=== PATIENT | female | born 1995 | race Caucasian/White ===

== ENCOUNTER 2018-04-17 19:40 | Outpatient (CLI) | payer OTHER ==
[2018-04-17 21:46] VITALS: BP 128/87; PULSE 88; RESP 15; TEMP 96.4
--- NOTE | 2018-04-26 12:41 | P.MSEPDOC ---
Presenting Problems - Arrival Data Date of Arrival on Unit: 04/17/18 Time of Arrival on Unit: 19:40 Mode of Transport: Ambulatory - Complaint OB-Reason for Admission/Chief Complaint: Rule Out SROM Comment: Pt states possible SROM at 1800 today Medical History - Information : 1 Para: 0 Term: 0 : 0 Abortions: Spontaneous or Elective: 0 Number of Living Children: 0 - Gestational Age Gestational Age by FILI (wks/days): 38 Weeks and 5 Days Review of Systems - Review of Systems Constitutional: No problems Breast: No problems ENT: No problems Cardiovascular: No problems Respiratory: No problems Gastrointestinal: No problems Genitourinary: No problems Musculoskeletal: No problems Neurological: No problems Skin: No problems Vital Signs - Temperature Temperature: 96.4 F Temperature Source: Temporal Artery Scan - Pulse Pulse Oximetery Pulse Rate: 88 Pulse Assessment Method: Automatic Cuff - Respirations Respiratory Rate: 15 Oxygen Delivery Method: Room Air - Blood Pressure Right Arm Blood Pressure: 128/87 Blood Pressure Mean: 100 Blood Pressure Source: Automatic Cuff Medical Screen Scoring (Pre) - Cervical Exam Dilation: 0 cm = 0 Membranes: Intact - Uterine Contractions Frequency: N/A Duration: N/A Intensity: N/A - Maternal Vital Signs Maternal Temperature: N/A Maternal Blood Pressure: N/A Signs of Preeclampsia: N/A Maternal Respirations: N/A - Pain Assessment Pain Scale Used: Numeric (1 - 10) Pain Intensity: 0 Pain Management Goal: 0 Pain Radiation Location: none Pain Duration: 0 Pain Aggravating Factors: None - Maternal Trauma Maternal Trauma: N/A - Assessment Baseline FHR: 140 Heart Rate - NICHD Category: Category I (Normal) = 0 NST: Reactive Position: N/A Station: N/A - Total Score Total Score (Pre): 0 - Level of Risk Level of Risk: Low (0-5) Physician Notification (Pre) - Physician Notified Physician Notified Date: 04/17/18 Physician Notified Time: 20:25 Physician/Practitioner Notifed:: Dr Cyndie Torres Order Received: Yes Disposition - Disposition OB Disposition: Discharge to home, Written follow up instructions reviewed Discharge Date: 04/17/18 Discharge Time: 20:40 I agree with the RN Medical Screening Exam: Yes Risk & Benefit of care provided described in d/c instruction: Yes Diagnosis: FALSE LABOR AT OR AFTER 37 COMPLETED WEEKS OF GESTATION
== END 2018-04-17 20:42 | disposition home or self-care (01) ==
LOC: FBPOP 19:40
PROVIDERS: ATTEND Obstetrics & Gynecology
DX: O47.1 False labor at or after 37 completed weeks of gestation (principal); Z3A.38 38 weeks gestation of pregnancy
CPT/HCPCS: 59025; 84112; G0463; 99213

== ENCOUNTER 2018-04-25 12:00 | Inpatient (IN) | payer OTHER ==
[2018-04-27] MEDS ORDERED: DINOPROSTONE 10 MG INSERT.ER VAGINAL ONE (17:17)
[2018-04-27 17:25] VITALS: BMI 42.8
[2018-04-27] MEDS ORDERED: BUTORPHANOL 1 MG/ML 1 ML VIAL IV PRN (18:16)
[2018-04-27 20:42] LABS: Basophils % (A) 0 %; Eosinophils # (A) 0.2 k/uL (0-0.7); Eosinophils % (A) 2 %; HCT 38.6 % (34.0-46.0); Lymphocytes # (A) 1.6 k/uL (1.0-4.8); Lymphocytes % (A) 14 %; MCHC 33.7 g/dL (31.0-37.0); Mean Platelet Volume 8.3; Monocytes % (A) 8 %; Neutrophils # (A) 8.3 k/uL (1.3-7.7); Neutrophils % (A) 74 %; Platelet Count 205 k/uL (150-450); RBC 4.33 m/uL (3.80-5.40); RDW 15.1 % (11.5-15.5); WBC 11.2 k/uL (3.8-10.6)
[2018-04-28] MEDS ORDERED: TERBUTALINE 1 MG/ML VIAL SQ PRN (04:18)
[2018-04-28] MEDS ORDERED: METHYLERGONOVINE 0.2 MG/ML 1 ML AMP IM PRN (04:18)
[2018-04-28] MEDS ORDERED: CARBOPROST TROMETHAMINE 250 MCG/ML 1 ML AMP IM PRN (04:18)
[2018-04-28] MEDS ORDERED: OXYTOCIN 10 UNIT/ML 1 ML VIAL IM PRN (04:18)
[2018-04-28] MEDS ORDERED: LIDOCAINE 1% (PF) 10 MG/ML (30 ML SDV) SQ PRN (04:18)
[2018-04-28] MEDS ORDERED: OXYTOCIN 20 UNITS/1000 ML NS 1,000 ML IV SCH ×2 (04:30→17:45)
[2018-04-28] MEDS: LACTATED RINGERS 1,000 ML IV SCH ×4 (05:43→20:32)
--- NOTE | 2018-04-28 08:39 | P.HPOB ---
History of Present Illness H&P Date: 04/28/18 Chief Complaint: 40-2/7 weeks, macrosomia, induction The patient is a 22-year-old 1 para 0 admitted at 40 and one sevenths as established by last menstrual period and 14 week ultrasound. She is admitted with an unfavorable cervix but a fetus growing at larger than the 97th percentile. As result, she has requested induction of labor to which I have agreed. Given her unfavorable cervix, she requires Cervidil cervical ripening first. Her has otherwise been uncomplicated though she was found to have the fetus in breech presentation at 35 weeks which resolved at 36 weeks. The fetus is in vertex presentation at this time. Group B strep status is negative. Obstetrical history: 1 para 0 with current statistics listed in history of present illness. EDC of 04/26/2018 was established by last menstrual period and confirmed by 14 week ultrasound. Laboratory workup demonstrates a blood type of A+ with a negative antibody screen. Rubella status is nonimmune. The remainder of the laboratory work was within normal limits. Early Glucola and second trimester Glucola were entirely normal. Group B strep status is negative. Valve Inserter history: Unremarkable with no history of any infections to include STDs. Review of Systems Review of systems is confined to history of present illness. Past Medical History Past Medical History: No Reported History History of Any Multi-Drug Resistant Organisms: None Reported Past Surgical History: No Surgical Hx Reported Past Anesthesia/Blood Transfusion Reactions: No Reported Reaction Past Psychological History: No Psychological Hx Reported Smoking Status: Former smoker - Past Family History Father Family Medical History: No Reported History Medications and Allergies Home Medications Medication Instructions Recorded Confirmed Type Pnv No.95/Ferrous Fum/Folic AC 1 each PO DAILY 04/17/18 04/27/18 History [ Multivitamin Tablet] Allergies Allergy/AdvReac Type Severity Reaction Status Date / Time No Known Allergies Allergy Verified 04/27/18 18:15 Exam Vital Signs Temp Pulse Resp BP Pulse Ox 04/27/18 17:19 98.2 F 101 H 18 133/61 97 Intake and Output 04/27/18 04/28/18 04/28/18 22:59 06:59 14:59 Intake Total 600 300 Balance 600 300 Intake: Oral 600 300 Other: # Voids 2 1 Weight 131.542 kg In general, this is a morbidly obese white female in no acute distress. Her heart has a regular rhythm and rate without murmur. Her lungs are clear to auscultation bilaterally in all price. Her abdomen is gravid, nondistended, has normal active bowel sounds, is soft, nontender, and without any palpable masses aside from the uterine fundus. Her extremities are without any cyanosis , clubbing, or significant edema and are nontender to palpation bilaterally. Digital cervical examination done traits cervix to be fingertip dilated, approximately 60% effaced, with the vertex in presentation at -3 station. Overnight Cervidil has failed to make any significant improvement in her cervical status. Results Result Diagrams: 04/27/18 17:40 Abnormal Lab Results - Last 24 Hours (Table) 04/27/18 Range/Units 17:40 WBC 11.2 H (3.8-10.6) k/uL Neutrophils # 8.3 H (1.3-7.7) k/uL Assessment and Plan (1) Term Current Visit: Yes Status: Acute Code(s): Z34.80 - ENCOUNTER FOR SUPRVSN OF NORMAL , UNSP TRIMESTER SNOMED Code(s): 92011510 (2) macrosomia Current Visit: Yes Status: Acute Code(s): O36.60X0 - MATERNAL CARE FOR EXCESS GROWTH, UNSP TRIMESTER, UNSP SNOMED Code(s): 90152485 Plan: The patient has been admitted for essentially elective induction secondary to the suspected macrosomia and at the patient's request. Overnight Cervidil has failed to change her cervix tremendously. She has been started on Pitocin and we will continue to have close maternal and surveillance with expectant management. Should it become a possibility, artificial rupture of membranes will be carried out the at that time. She understands that if she fails to follow the labor curve or make any significant cervical change, the likely next step would be to proceed to primary low transverse section for both maternal and safety.
[2018-04-28] MEDS ORDERED: ceFAZolin 3 GM in SODIUM CHLORIDE 0.9% 100 ML IVPB ONE (14:09)
[2018-04-28] MEDS ORDERED: CITRIC ACID-SODIUM CITRATE 15 ML CUP PO ONE (14:09)
[2018-04-28] MEDS ORDERED: NALBUPHINE 10 MG/ML VIAL (10ML MDV) ONE (16:45)
[2018-04-28] MEDS ORDERED: KETOROLAC 30 MG/ML 1 ML VIAL ONE (16:45)
[2018-04-28] MEDS ORDERED: MORPHINE SULFATE (PF) 0.3 MG/0.3 ML SYR ONE (16:45)
[2018-04-28] MEDS ORDERED: OXYTOCIN 10 UNIT/ML 1 ML VIAL ONE (16:45)
[2018-04-28] MEDS ORDERED: PHENYLEPHRINE-0.9% NACL SYG 1 MG/10 ML SYRINGE ONE (16:45)
[2018-04-28] MEDS ORDERED: ONDANSETRON 4 MG/2 ML VIAL ONE (16:45)
[2018-04-28] MEDS ORDERED: ZOLPIDEM 5 MG TAB PO PRN (17:36)
[2018-04-28] MEDS ORDERED: SIMETHICONE 80 MG CHEWABLE PO PRN (17:36)
[2018-04-28] MEDS ORDERED: diphenhydrAMINE 25 MG CAP PO PRN (17:36)
[2018-04-28] MEDS ORDERED: NALOXONE 0.4 MG/ML 1 ML VIAL IV PRN (17:36)
[2018-04-28] MEDS ORDERED: diphenhydrAMINE 50 MG/ML 1 ML VIAL IVP PRN ×2 (17:36)
[2018-04-28] MEDS ORDERED: diphenhydrAMINE 50 MG CAP PO PRN (17:36)
[2018-04-28] MEDS ORDERED: LANOLIN CREAM 5 GM TUBE TOPICAL PRN (17:36)
[2018-04-28] MEDS ORDERED: ONDANSETRON 4 MG/2 ML VIAL IVP PRN (17:36)
[2018-04-28] MEDS ORDERED: ACETAMINOPHEN TAB 325 MG TAB PO PRN (17:36)
[2018-04-28] MEDS ORDERED: METOCLOPRAMIDE 5 MG/ML 2 ML VIAL IVP PRN (17:36)
--- NOTE | 2018-04-28 17:47 | P.OP ---
Date of Procedure: 04/28/18 Preoperative Diagnosis: #1. 40-2/7 weeks, elective induction #2. Suspected macrosomia #3. Arrest of dilation and descent Postoperative Diagnosis: Same plus #4. Nuchal cord 1 Procedure(s) Performed: #1 primary low transverse section Anesthesia: spinal Surgeon: Gilmar Golden Manufacturing Specialist #1: Trinity Cummings Estimated Blood Loss (ml): 400 IV fluids (ml): 600 Urine output (ml): 200 Pathology: none sent Condition: stable Disposition: PACU Operative Findings: Preoperatively, the patient had been admitted for overnight Cervidil cervical ripening procedure an induction today. She had a full day of Pitocin today and never felt any significant pressure or change in her status though she was susu on regular basis. Her cervical exam never changed remaining fingertip, perhaps 50% effaced, with the vertex very high in presentation. Given the anticipated macrosomia, we opted to proceed with primary low- transverse section. She was taken to the operating room where she was delivered of a viable 9 lbs. 6 oz. baby boy with Apgars of 8 at 1 minute and 9 at 5 minutes. The placenta was delivered manually, intact, and grossly normal with a grossly normal three-vessel cord. The uterus, tubes, and ovaries were entirely normal to inspection. Description of Procedure: The patient was prepped and draped in usual fashion after spinal anesthesia was administered by the anesthesiologist. A Pfannenstiel incision was made and extended into the peritoneal cavity without difficulty. The bladder was significantly distal to the site of the intended incision and the bladder peritoneum was left intact. A 2 cm incision was made in the lower uterine segment in a transverse plane at which time clear fluid was noted. The incision was extended in both directions using bandage scissors. The head was encountered within the incision and was delivered up and through the incision where the nose and mouth were thoroughly suctioned. A nuchal cord 1 was noted and was reduced at that time. The remainder of the infant was delivered onto the field where the cord was doubly clamped, cut, and the passed for resuscitative measures with weight and Apgars as noted above. A segment of cord was doubly clamped, cut, and set aside should cord gases become necessary. The placenta was delivered manually and intact as noted above. The uterus was exteriorized and the interior cavity of the uterus swept of any remaining placental or membranous fragments. The margins of the incisions are grasped with Leary clamps and the incision closed in 2 layers. The first layer was a running locking stitch of 0 chromic catgut followed by a running imbricating stitch of 0 chromic catgut, each from margin to margin. Hemostasis appeared excellent. The posterior cul-de-sac was suctioned using a guard and the uterine and ovarian findings were normal as noted above. The uterus was replaced within the abdominal cavity and the gutters swept of any remaining blood, fluid, or clot. The incision was reexamined and found to be hemostatic. The parietal peritoneum was loosely reapproximated and the layer of muscles examined and made hemostatic with the Bovie. Once hemostasis was established, the fascia was closed with 2 running stitches of 0 Vicryl proceeding from the lateral margins to the midpoint. The subcutaneous tissues were irrigated, made hemostatic with the Bovie, and reapproximated with a running stitch of 3-0 plain catgut. The skin was reapproximated with a running subcuticular stitch of 4-0 Vicryl followed by half-inch Steri-Strips placed with Mastisol. Estimated blood loss for the case was approximate 400 mL. There were no complications. All sponge, instrument, and needle counts were correct. The patient tolerated the procedure well and proceeded to the recovery room in stable condition. Both mother and infant are resting comfortably in recovery.
[2018-04-28] MEDS: SENNOSIDES-DOCUSATE SODIUM 1 EACH TAB PO SCH (20:32)
[2018-04-29] MEDS: LACTATED RINGERS 1,000 ML IV SCH (04:23)
--- NOTE | 2018-04-29 06:42 | P.PN ---
Progress Note - Text 04/29 631am 22-year-old female status post by Dr. Golden. Patient had a spinal with Duramorph for postop pain control. Patient seen this morning with a VAS of 0 no complains of nausea vomiting minimal itching.
[2018-04-29 07:31] LABS: Basophils % (A) 0 %; Eosinophils # (A) 0.1 k/uL (0-0.7); Eosinophils % (A) 1 %; HCT 33.9 % (34.0-46.0); HGB 11.3 gm/dL (11.4-16.0); Lymphocytes # (A) 1.3 k/uL (1.0-4.8); Lymphocytes % (A) 11 %; MCH 29.5 pg (25.0-35.0); MCHC 33.4 g/dL (31.0-37.0); MCV 88.4 fL (80.0-100.0); Mean Platelet Volume 7.4; Monocytes % (A) 9 %; Neutrophils # (A) 8.8 k/uL (1.3-7.7); Neutrophils % (A) 77 %; Platelet Count 150 k/uL (150-450); RBC 3.84 m/uL (3.80-5.40); RDW 14.7 % (11.5-15.5); WBC 11.4 k/uL (3.8-10.6)
[2018-04-29] MEDS: KETOROLAC 30 MG/ML 1 ML VIAL IVP PRN ×2 (08:08→16:34)
[2018-04-29] MEDS: SENNOSIDES-DOCUSATE SODIUM 1 EACH TAB PO SCH ×2 (08:08→20:19)
--- NOTE | 2018-04-29 09:40 | P.PNOBGPC ---
Subjective - Subjective Patient reports: Reports appetite normal, Reports voiding normally, Reports pain well controlled, Reports ambulating normally : doing well Objective - Vital Signs Latest vital signs: Vital Signs Temp Pulse Resp BP Pulse Ox 04/29/18 08:00 98.4 F 80 16 110/67 04/29/18 04:00 98.7 F 90 18 115/68 95 04/29/18 00:00 98.0 F 79 16 121/74 96 04/28/18 19:23 98 F 60 15 119/70 98 04/28/18 19:05 56 L 16 119/71 04/28/18 18:35 59 L 17 115/77 99 04/28/18 18:20 69 17 120/77 96 04/28/18 18:05 97.8 F 91 17 113/66 99 04/28/18 17:50 71 16 113/67 96 04/28/18 17:35 97.5 F L 65 17 111/58 96 Intake and Output 04/28/18 04/29/18 04/29/18 22:59 06:59 14:59 Output Total 600 3 Balance -600 -3 Output: Urine 600 3 Uretheral ([place]) 300 Other: # Voids 1 - Exam Extremities: Present: normal Abdomen: Present: normal appearance, soft. Absent: distention, tenderness Incision: Present: normal, dry, intact Uterus: Present: normal, firm (And fundus as tonic and nontender at the umbilicus.) - Labs Labs: Abnormal Lab Results - Last 24 Hours (Table) 04/29/18 Range/Units 07:20 WBC 11.4 H (3.8-10.6) k/uL Hgb 11.3 L (11.4-16.0) gm/dL Hct 33.9 L (34.0-46.0) % Neutrophils # 8.8 H (1.3-7.7) k/uL Assessment and Plan (1) Term Current Visit: Yes Status: Acute Code(s): Z34.80 - ENCOUNTER FOR SUPRVSN OF NORMAL , UNSP TRIMESTER SNOMED Code(s): 20674893 (2) macrosomia Current Visit: Yes Status: Acute Code(s): O36.60X0 - MATERNAL CARE FOR EXCESS GROWTH, UNSP TRIMESTER, UNSP SNOMED Code(s): 63174842 (3) S/P section Current Visit: Yes Status: Acute Code(s): Z98.891 - HISTORY OF UTERINE SCAR FROM PREVIOUS SURGERY SNOMED Code(s): 988802528 Plan: Continue routine care. I would anticipate probable discharge home tomorrow pending location. I have encouraged patient to ambulate in the hallways consistently today.
[2018-04-29] MEDS ORDERED: MEASLES-MUMPS-RUBELLA VACC/PF 12,500 UNIT/0.5 ML VIAL SQ ONE (17:26)
[2018-04-30] MEDS: IBUPROFEN 600 MG TAB PO PRN ×4 (00:19→22:38)
[2018-04-30] MEDS: HYDROcodone/APAP 5-325MG 1 EACH TAB PO PRN ×3 (04:12→19:33)
[2018-04-30] MEDS: SENNOSIDES-DOCUSATE SODIUM 1 EACH TAB PO SCH (08:08)
--- NOTE | 2018-04-30 12:03 | P.PNOBGPC ---
Subjective - Subjective Interval history: Having some difficulty with nursing. Patient reports: Reports appetite normal, Reports voiding normally, Reports pain well controlled, Reports ambulating normally : doing well Objective - Vital Signs Latest vital signs: Vital Signs Temp Pulse Resp BP Pulse Ox 04/30/18 08:00 98.2 F 98 18 108/65 97 04/30/18 00:00 98.4 F 83 16 122/67 98 04/29/18 16:00 98.6 F 89 16 103/60 04/29/18 13:00 98.4 F 77 16 115/69 Intake and Output 04/29/18 04/30/18 04/30/18 22:59 06:59 14:59 Output Total 1600 Balance -1600 Output: Urine 1600 Other: # Voids 1 1 - Exam Extremities: Present: normal Abdomen: Present: normal appearance, soft. Absent: distention, tenderness Incision: Present: normal, dry, intact Uterus: Present: normal, firm (The uterine fundus as tonic inappropriately tender at the umbilicus.) Assessment and Plan (1) Term Current Visit: Yes Status: Acute Code(s): Z34.80 - ENCOUNTER FOR SUPRVSN OF NORMAL , UNSP TRIMESTER SNOMED Code(s): 17722897 (2) macrosomia Current Visit: Yes Status: Acute Code(s): O36.60X0 - MATERNAL CARE FOR EXCESS GROWTH, UNSP TRIMESTER, UNSP SNOMED Code(s): 48322495 (3) S/P section Current Visit: Yes Status: Acute Code(s): Z98.891 - HISTORY OF UTERINE SCAR FROM PREVIOUS SURGERY SNOMED Code(s): 230053315 Plan: Continue routine postoperative and care. The patient is opted to remain in the hospital for an extra day to receive assistance with breast- feeding. I do anticipate discharge home tomorrow pending the complications.
[2018-05-01] MEDS: SENNOSIDES-DOCUSATE SODIUM 1 EACH TAB PO SCH ×2 (00:19→08:00)
[2018-05-01] MEDS: HYDROcodone/APAP 7.5-325MG 1 EACH TAB PO PRN ×2 (02:10→10:41)
[2018-05-01] MEDS: IBUPROFEN 600 MG TAB PO PRN (05:24)
[2018-05-01 10:19] VITALS: BP 116/58; PULSE 71; RESP 18; TEMP 97.9
--- NOTE | 2018-05-01 10:37 | P.DS ---
Providers Date of admission: 04/27/18 17:13 Expected date of discharge: 05/01/18 Attending physician: Gilmar Golden Primary care physician: Stated None - Discharge Diagnosis(es) (1) Term Current Visit: Yes Status: Acute (2) macrosomia Current Visit: Yes Status: Acute (3) S/P section Current Visit: Yes Status: Acute Hospital Course: The patient is a 22-year-old 1 para 0 admitted at 40 and one sevenths weeks by good dating parameters. She is admitted with an unfavorable cervix and a fetus at greater than 97th percentile growth. She requested induction of labor and, given the unfavorable cervix, was admitted for Cervidil cervical ripening to be followed by Pitocin induction. The overnight Cervidil placement failed to make any tremendous difference in her cervix and Pitocin augmentation was started. She made little to no progress throughout the entire day of Pitocin augmentation. As result of previous discussions with the patient given the size of the and discussions on labor and delivery, we agreed to abandon induction and proceed instead to primary low transverse section. She was taken to the operating room where she was delivered of a viable 9 lbs. 6 oz. baby boy with Apgars of 8 at 1 minute and 9 at 5 minutes. Her postoperative course was unremarkable with vital signs remaining stable and her temperature was afebrile throughout. She was deemed stable for discharge on postoperative day #3 was discharged home to follow-up in the office in 2 weeks for an incision check and 6 weeks routinely. Discharge instructions included calling for any significantly increased bleeding or foul-smelling lochia, significantly increased fever abdominal pain, perineal complaints, breast complaints, incisional complaints, or anything else that concerned her. She was additionally instructed to have nothing in the vagina for at least 6 weeks time to include intercourse and to do no heavy lifting over the same period of time. She was lastly instructed to do no driving until off of all pain medications or 2 weeks' time, whichever came first. She understood her instructions and agrees to follow up as noted above. Discharge medications included continued vitamins as she has opted to breast-feed. She also use [id number] analgesic pain medications as needed. She was provided a prescription for Ralph 5/325 mg, 1-2 by mouth every 6 hours when necessary pain , #20 dispensed with no refills. Maternal blood type is A+ and rubella status is nonimmune. She therefore was to receive the MMR vaccination prior to discharge. Hemoglobin and hematocrit at discharge were 11.3 and 33.9 respectively. Procedures: #1. Cervidil cervical ripening #2. Pitocin augmentation #3. Primary low- transverse section Patient Condition at Discharge: Stable Plan - Discharge Summary Discharge Rx Participant: No New Discharge Prescriptions: No Action Pnv No.95/Ferrous Fum/Folic AC [ Multivitamin Tablet] 1 each PO DAILY Discharge Medication List Pnv No.95/Ferrous Fum/Folic AC [ Multivitamin Tablet] 1 each PO DAILY [History] Follow up Appointment(s)/Referral(s): Gilmar Golden MD [STAFF PHYSICIAN] - 2 Weeks Discharge Disposition: HOME SELF-CARE
== END 2018-05-01 11:30 | disposition home or self-care (01) | DRG 765 ==
LOC: 4FBP 04-27 17:13
PROVIDERS: ADMIT Obstetrics & Gynecology; ATTEND Obstetrics & Gynecology
PROC: 3E033VJ Introduction of Other Hormone into Peripheral Vein, Percutaneous Approach (ICD-10-PCS; principal; 2018-04-27)
PROC: 3E0P7VZ Introduction of Hormone into Female Reproductive, Via Natural or Artificial Opening (ICD-10-PCS; principal; 2018-04-27)
PROC: 10907ZC Drainage of Amniotic Fluid, Therapeutic from Products of Conception, Via Natural or Artificial Opening (ICD-10-PCS; principal; 2018-04-27)
PROC: 10D00Z1 Extraction of Products of Conception, Low, Open Approach (ICD-10-PCS; 2018-04-28)
DX: O36.63X0 Maternal care for excessive fetal growth, third trimester, not applicable or unspecified (principal); Z68.41 Body mass index [BMI] 40.0-44.9, adult; Z37.0 Single live birth; O48.0 Post-term pregnancy; Z3A.40 40 weeks gestation of pregnancy; Z87.891 Personal history of nicotine dependence; O69.81X0 Labor and delivery complicated by cord around neck, without compression, not applicable or unspecified; O99.214 Obesity complicating childbirth; E66.01 Morbid (severe) obesity due to excess calories; O62.0 Primary inadequate contractions; O32.4XX0 Maternal care for high head at term, not applicable or unspecified
CPT/HCPCS: 85025; 86850; 86900; 86901; 90707

== ENCOUNTER → 2019-10-12 | Outpatient (CLI) | payer OTHER ==
--- NOTE | 2019-10-12 09:10 | US ---
EXAMINATION TYPE: US gallbladder DATE OF EXAM: 10/12/2019 COMPARISON: NONE CLINICAL HISTORY: R10.11 Abdominal pain, right upper quadrant. RUQ pain. NPO. No previous surgeries . EXAM MEASUREMENTS: Liver Length: 18.4 cm Gallbladder Wall: 0.2 cm CBD: 0.3 cm Right Kidney: 10.4 x 5.8 x 4.4 cm Pancreas: Head and tail obscured by overlying bowel gas. Liver: Upper limits of normal in size Gallbladder: wnl Evidence for sonographic Covarrubias's sign: neg CBD: wnl Right Kidney: No hydronephrosis or masses seen IMPRESSION: Liver is upper limits of normal in size. No sonographic evidence of cholelithiasis or acu te cholecystitis. Partial obscuration of the pancreas.
== END | disposition home or self-care (01) ==
LOC: RADUSWWP 07:08
PROVIDERS: ATTEND Family Medicine
DX: R10.11 Right upper quadrant pain (principal)
CPT/HCPCS: 76705

== ENCOUNTER → 2019-10-31 | Outpatient (CLI) | payer OTHER ==
--- NOTE | 2019-10-31 15:52 | NM ---
EXAMINATION TYPE: NM hepatobiliary w EF DATE OF EXAM: 10/31/2019 COMPARISON: Ultrasound gallbladder 10/12/2019 HISTORY: Abdominal pain right upper quadrant TECHNIQUE: After the intravenous administration of 4.55 mCi Tc 99m Mebrofenin hepatobiliary scintigra phy is performed. Immediate images post injection. FINDINGS: There is satisfactory initial accumulation of tracer by the liver. The gallbladder is visualized wit hin 6 minutes. The small bowel activity is noted within 10 minutes. At one hour 8 ounces of oral en sure plus is given to mimic CCK and gallbladder ejection fraction is calculated at 63 %, in the shena l range. Therefore there is no scintigraphic evidence of cystic or common bile duct obstruction to s uggest acute cholecystitis or gallbladder dyskinesia. IMPRESSION: Exam is within normal limits.
== END | disposition home or self-care (01) ==
LOC: RADNMMAIN 12:52
PROVIDERS: ATTEND Family Medicine
DX: R10.11 Right upper quadrant pain (principal)
CPT/HCPCS: 78226; A9537

== ENCOUNTER → 2019-11-29 | Outpatient (CLI) | payer OTHER ==
--- NOTE | 2019-11-29 15:00 | USB ---
Reason for exam: clinical finding. Indicated problem(s): lump or thickening in the left breast. Physical Findings: Nurse did not find any significant physical abnormalities on exam. US Breast Limited LT Left limited breast ultrasound including focal area of concern, retroareolar and axilla demonstrates a 3.6 x 2.9 x 1.4cm oval lesion at the axilla, lipoma versus enlarged lymph node. 3 months follow up ultrasound recommended. These results were verbally communicated with the patient and result sheet given to the patient on 11/29/19. ASSESSMENT: Probably benign, BI-RAD 3 RECOMMENDATION: Ultrasound of the left breast in 3 months. (axilla)
== END | disposition home or self-care (01) ==
LOC: RADMAMWWP 13:08
PROVIDERS: ATTEND Family Medicine
DX: N63.25 Unspecified lump in the left breast, overlapping quadrants (principal); N64.4 Mastodynia

== ENCOUNTER → 2020-03-04 | Outpatient (CLI) | payer OTHER ==
--- NOTE | 2020-03-05 09:07 | USB ---
Reason for exam: clinical finding. Physical Findings: Nurse Summary: all soft, nodular, movable (nurse ts). US Breast LT Technologist: Viky Painter Left complete breast ultrasound includes all four quadrants, the retroareolar region and axilla. Finding demonstrates a 3.8 x 3.0 x 1.3cm oval, vascular lesion at the axilla, appears as an enlarged lymph node on today's exam with cortical thickening. These results were verbally communicated with the patient and result sheet given to the patient on 03/04/20. ASSESSMENT: Suspicious, BI-RAD 4 RECOMMENDATION: Ultrasound core biopsy of the left breast. Called Dr. Chinchilla's office with mammographic findings. Office will call patient with appointment date and time of axilla biopsy. PRELIMINARY REPORT CALLED AND FAXED TO DR. CHINCHILLA ON 03/05/20.
== END | disposition home or self-care (01) ==
LOC: RADUSWWP 14:49
PROVIDERS: ATTEND Family Medicine
DX: R92.8 Other abnormal and inconclusive findings on diagnostic imaging of breast (principal)

== ENCOUNTER 2020-03-13 13:02 | Day surgery (SDC) | payer OTHER ==
[2020-03-13 14:02] VITALS: TEMP 99
[2020-03-13 15:19] VITALS: BP 124/76; PULSE 81; RESP 16
--- NOTE | 2020-03-13 15:39 | US ---
EXAMINATION TYPE: US biopsy lymph node DATE OF EXAM: 03/13/2020 HISTORY: Left axillary mass. FINDINGS: Maximal barrier technique was utilized. Hand hygiene achieved with soap and water. The ski n overlying a suitable path to the patient's mass in the left axilla which is isoechoic to fat was lo calized with ultrasound and the overlying skin prepped and draped. Ultrasound was utilized with ster ile technique. Lidocaine was used for local anesthesia. A skin ricky was made with a scalpel. An 18 -gauge needle was advanced under direct ultrasound guidance and core specimen obtained of the mass. 2 passes were made. Specimen submitted in formalin to Pathology. Following the procedure, hemostasis achieved and the patient is discharged in stable condition without complication. IMPRESSION:STATUS POST ULTRASOUND GUIDED CORE BIOPSY OF left axillary MASS, isoechoic to fat, PATHOLO GY IS PENDING. THIS PROCEDURE IS PERFORMED BY THE UNDERSIGNED.
== END 2020-03-13 14:45 | disposition home or self-care (01) ==
LOC: RADPROMAIN 13:02
PROVIDERS: ATTEND Nurse Practitioner Women's Health
DX: R22.32 Localized swelling, mass and lump, left upper limb (principal)
CPT/HCPCS: 38505; 76942; 88305

== ENCOUNTER → 2020-04-18 | Outpatient (CLI) | payer OTHER ==
--- NOTE | 2020-04-18 12:02 | US ---
EXAMINATION TYPE: Transabdominal DATE OF EXAM: 04/18/2020 11:48 AM COMPARISON: NONE CLINICAL HISTORY: O76 Abnormality in heart rate and rhythm com. No heart tones EXAM PERFORMED: Transabdominal (TA) EXAM MEASUREMENTS: GESTATIONAL AGE / DATING Physician Established: (11 weeks/3 days) EDC: 11/04/2020 Dates by LMP: (11 weeks/3 days) EDC: 11/04/2020 Dates by First Scan: No previous this is first scan Dates by Current Scan for: (11 weeks/3 days) EDC: 11/04/2020 MATERNAL ANATOMY Uterus: 13 x 6.5 x 9.9 cm Right Ovary: Obscured by bowel gas Left Ovary: Obscured by bowel gas Post CDS / Adnexa: wnl Presence of free fluid: no Presence of corpus luteal cyst: no Presence of subchorionic bleed: no GESTATION / SURVEY CRL: 4.59 cm (11 weeks/3 days) Heart Rate: 170 bpm Rhythm: Normal IUP: Viable IUP Beta HcG (if available): Not available at this time Single live intrauterine gestation is seen a gestational sac and pole are seen. Yolk sac not id entified. No free fluid. Neither ovary seen. No suspicious adnexal masses IMPRESSION: Single live Intrauterine gestation, mean crown-rump length is 4.6 cm corresponding to 11 week 3 day old fetus.
== END | disposition home or self-care (01) ==
LOC: RADUSWWP 11:31
PROVIDERS: ATTEND Obstetrics & Gynecology
DX: O76 Abnormality in fetal heart rate and rhythm complicating labor and delivery (principal); Z3A.11 11 weeks gestation of pregnancy
CPT/HCPCS: 76801

== ENCOUNTER 2020-10-28 05:53 | Inpatient (IN) | payer OTHER ==
[2020-10-25 16:13] VITALS: BMI 42.8
[2020-10-28] MEDS ORDERED: CITRIC ACID-SODIUM CITRATE 15 ML CUP PO ONE (06:04)
[2020-10-28] MEDS ORDERED: ceFAZolin 3 GM in SODIUM CHLORIDE 0.9% 100 ML IVPB ONE (06:04)
[2020-10-28] MEDS ORDERED: LACTATED RINGERS 1,000 ML IV ONE (06:04)
[2020-10-28] MEDS ORDERED: LACTATED RINGERS 1,000 ML IV SCH (06:15)
[2020-10-28 07:22] LABS: Basophils # (A) 0.1 k/uL (0-0.2); Basophils % (A) 1 %; Eosinophils # (A) 0.1 k/uL (0-0.7); Eosinophils % (A) 1 %; HCT 41.8 % (34.0-46.0); HGB 14.2 gm/dL (11.4-16.0); Lymphocytes # (A) 2.1 k/uL (1.0-4.8); Lymphocytes % (A) 16 %; MCH 30.5 pg (25.0-35.0); MCV 89.6 fL (80.0-100.0); Mean Platelet Volume 7.7; Monocytes % (A) 7 %; Neutrophils % (A) 74 %; Platelet Count 218 k/uL (150-450); RBC 4.66 m/uL (3.80-5.40); RDW 14.5 % (11.5-15.5); WBC 13.6 k/uL (3.8-10.6)
[2020-10-28] MEDS ORDERED: MORPHINE SULFATE (PF) 0.3 MG/0.3 ML SYR ONE (07:58)
[2020-10-28] MEDS ORDERED: PHENYLEPHRINE 10 MG/ML VIAL ONE (07:58)
[2020-10-28] MEDS ORDERED: KETOROLAC 15 MG/ML 1 ML VIAL ONE (07:58)
[2020-10-28] MEDS ORDERED: OXYTOCIN 10 UNIT/ML 1 ML VIAL ONE (07:58)
[2020-10-28] MEDS ORDERED: diphenhydrAMINE 50 MG/ML 1 ML VIAL IVP PRN ×3 (09:02→09:25)
[2020-10-28] MEDS ORDERED: ONDANSETRON 4 MG/2 ML VIAL IVP PRN ×2 (09:02→09:25)
[2020-10-28] MEDS ORDERED: MORPHINE SULFATE 2 MG/ML SYRINGE IVP PRN (09:02)
[2020-10-28] MEDS ORDERED: NALOXONE 0.4 MG/ML 1 ML VIAL IV PRN ×2 (09:02→09:25)
[2020-10-28] MEDS ORDERED: METOCLOPRAMIDE 5 MG/ML 2 ML VIAL IVP PRN (09:25)
[2020-10-28] MEDS ORDERED: SIMETHICONE 80 MG CHEWABLE PO PRN (09:25)
[2020-10-28] MEDS ORDERED: ZOLPIDEM 5 MG TAB PO PRN (09:25)
[2020-10-28] MEDS ORDERED: diphenhydrAMINE 50 MG CAP PO PRN (09:25)
[2020-10-28] MEDS ORDERED: HYDROcodone/APAP 7.5-325MG 1 EACH TAB PO PRN (09:25)
[2020-10-28] MEDS ORDERED: ACETAMINOPHEN TAB 325 MG TAB PO PRN (09:25)
[2020-10-28] MEDS ORDERED: diphenhydrAMINE 25 MG CAP PO PRN (09:25)
[2020-10-28] MEDS ORDERED: LANOLIN CREAM 5 GM TUBE TOPICAL PRN (09:25)
[2020-10-28] MEDS ORDERED: OXYTOCIN 30 UNITS/500 ML NS 30 UNIT in SALINE 1 500ML.BAG IV SCH (09:30)
--- NOTE | 2020-10-28 09:30 | P.HPOB ---
History of Present Illness H&P Date: 10/28/20 Chief Complaint: 39-0/7 weeks, previous section, requesting repeat The patient is a 25-year-old 2 para 1001 admitted at 39-0/7 weeks as established by 8 week ultrasound. She is admitted for repeat low transverse section having undergone a previous section and requesting repeat, declining vaginal trial of labor. Her has been entirely uncomplicated and group B strep status is negative. Obstetrical history: 2 para 1001 with 1 term section as noted above for arrest of dilation and descent. Current statistics are listed in history present illness. EDC of 11/04/2020 was established by an 8 week ultrasound. Laboratory workup demonstrates a blood type of A+ with a negative antibody screen. Rubella status is immune. The remainder of the laboratory workup was within normal limits. Early Glucola was normal as was second trimester Glucola. Group B strep status is negative. Gynecologic history: Unremarkable with no history of any infections to include STDs. Review of Systems Review of systems is confined to history of present illness. Past Medical History Past Medical History: GERD/Reflux, Hypertension Additional Past Medical History / Comment(s): Hypertension as child, heart murmur as a child, gallstones, hx belly button infection. Current lump in left breast, having Mammogram . 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 Past Anesthesia/Blood Transfusion Reactions: No Reported Reaction Past Psychological History: Anxiety Additional Psychological History / Comment(s): Anxiety as a child, none now. Smoking Status: Former smoker Past Alcohol Use History: None Reported Additional Past Alcohol Use History / Comment(s): Smoked on and off quit 1 yr ago. Past Drug Use History: None Reported - Past Family History Father Family Medical History: No Reported History Medications and Allergies Home Medications Medication Instructions Recorded Confirmed Type Pnv No.95/Ferrous Fum/Folic AC 1 each PO DAILY 04/17/18 10/28/20 History [ Multivitamin Tablet] Omeprazole 20 mg PO DAILY 10/25/20 10/28/20 History Allergies Allergy/AdvReac Type Severity Reaction Status Date / Time No Known Allergies Allergy Verified 10/28/20 06:03 Exam Vital Signs Temp Pulse Resp BP Pulse Ox 10/28/20 09:15 80 16 110/57 95 10/28/20 09:02 16 96 10/28/20 09:00 96.6 F L 81 16 106/55 96 10/28/20 06:03 97.6 F 114 H 16 142/76 97 Intake and Output 10/27/20 10/28/20 10/28/20 22:59 06:59 14:59 Output Total 50 Balance -50 Output: Urine 50 Other: Voiding Method Indwelling Catheter Weight 131.542 kg In general, this is a well-developed, moderately obese white female in no acute distress. Her heart has a regular rhythm and rate without murmur. Her lungs are clear to auscultation in all price. Her abdomen is gravid, nondistended, has normal active bowel sounds, soft, nontender, and without any palpable masses aside from the uterine fundus. Her extremities are without any cyanosis, clubbing, or significant edema and are nontender to palpation bilaterally. Digital cervical examination is deferred. Results Result Diagrams: 10/28/20 07:06 Abnormal Lab Results - Last 24 Hours (Table) 10/28/20 Range/Units 07:06 WBC 13.6 H (3.8-10.6) k/uL Neutrophils # 10.0 H (1.3-7.7) k/uL Assessment and Plan (1) Previous section Current Visit: Yes Status: Acute Code(s): Z98.891 - HISTORY OF UTERINE SCAR FROM PREVIOUS SURGERY SNOMED Code(s): 295909834 (2) Term Current Visit: Yes Status: Acute Code(s): Z34.80 - ENCOUNTER FOR SUPRVSN OF NORMAL , UNSP TRIMESTER SNOMED Code(s): 32688353 Plan: The patient is admitted for repeat low transverse section. The risks and, occasions the procedure been thoroughly discussed and she has understood and agreed to proceed.
--- NOTE | 2020-10-28 09:36 | P.OP ---
Date of Procedure: 10/28/20 Preoperative Diagnosis: #1. 39-0/7 weeks, previous section, requesting repeat Postoperative Diagnosis: Same Procedure(s) Performed: #1. Repeat low transverse section Anesthesia: spinal Surgeon: Gilmar Golden Time Analysis Clerk #1: Mariajose Agee Estimated Blood Loss (ml): 470 IV fluids (ml): 500 Urine output (ml): 50 Pathology: none sent Condition: stable Disposition: floor Operative Findings: The patient was taken the operating room where she was delivered of a viable 7 lbs. 14 oz. baby boy with Apgars of 8 at 1 minute and 9 at 5 minutes delivered in the right occiput posterior position. The placenta was delivered manually and intact. The uterus, tubes, and ovaries were entirely normal to inspection. There was a moderate to significant amount of scarring at the level of the fascia and rectus muscles. Description of Procedure: The patient was prepped and draped in usual fashion after spinal anesthesia was administered by the anesthesiologist. A Pfannenstiel incision was made through pre-existing scar and extended into the abdominal cavity with some difficulty encountered at the level of the fascia and muscles secondary to scarring. Once the abdomen had been entered, bladder peritoneum was noted to be scarred relatively high and was therefore elevated, incised, and reflected distally. A 2 cm incision was made in the transverse plane of the lower uterine segment to enter the uterus at which time clear fluid was noted. The incision was extended in both directions using the bandage scissors. The head was delivered up and through the incision where the nose and mouth were thoroughly suctioned. Remainder of the was delivered onto the field where the cord was doubly clamped, cut, and the infant passed resuscitative measures with weight and Apgars as noted above. A segment of cord was doubly clamped, cut, and set aside should cord gases become necessary. The placenta was delivered manually and intact as noted above. The uterus was exteriorized and the interior cavity of the uterus swept of any remaining placental or membranous fragments. The margins of the uterine incision were grasped with Leary clamps and the incision closed in 2 layers. The first layer was a running locking stitch of 0 chromic catgut followed by a running imbricating layer of 0 chromic, each from margin to margin. A point of bleeding at the left angle was made hemostatic with approximately 2-3 wxprmg-fp-jeujo stitches of 0 chromic catgut. Any small points of bleeding were made hemostatic with the Bovie. The posterior cul-de-sac was suctioned with a guard as well as a laparotomy sponge. The uterus was replaced within the abdominal cavity and the gutters swept of any remaining blood, fluid, or clot. Examination of the uterine incision demonstrated excellent hemostasis after placement of the last [id number] stitch the left angle. The parietal peritoneum was loosely reapproximated and layer of muscles examined and made hemostatic with the Bovie. The fascia was closed with 2 running stitches of 0 Vicryl proceeding from lateral margins to the midpoint. The subcutaneous tissues were irrigated, made hemostatic with the Bovie, and reapproximated with a running stitch of 30 plain catgut. The skin was reapproximated with a running subcuticular stitch of 4-0 Vicryl from margin to margin followed by half-inch Steri-Strips placed with Mastisol. Estimated blood loss for the entire case was approximate 470 mL. There were no complications. All sponge, instrument, needle counts were correct. The patient tolerated the procedure well and proceeded to the recovery room in stable condition. Both mother and are resting comfortably in recovery.
[2020-10-28] MEDS: LACTATED RINGERS 1,000 ML IV SCH ×3 (14:48→23:52)
[2020-10-28] MEDS: KETOROLAC 15 MG/ML 1 ML VIAL IVP PRN ×2 (16:02→22:03)
[2020-10-28] MEDS: SENNOSIDES-DOCUSATE SODIUM 1 EACH TAB PO SCH (19:50)
[2020-10-29] MEDS: KETOROLAC 15 MG/ML 1 ML VIAL IVP PRN (05:50)
[2020-10-29 06:05] LABS: Basophils # (A) 0.1 k/uL (0-0.2); Basophils % (A) 0 %; Eosinophils # (A) 0.2 k/uL (0-0.7); Eosinophils % (A) 2 %; HCT 36.2 % (34.0-46.0); HGB 12.4 gm/dL (11.4-16.0); Lymphocytes # (A) 1.9 k/uL (1.0-4.8); Lymphocytes % (A) 14 %; MCH 31.5 pg (25.0-35.0); MCHC 34.2 g/dL (31.0-37.0); MCV 91.9 fL (80.0-100.0); Mean Platelet Volume 9.3; Monocytes # (A) 1.2 k/uL (0-1.0); Monocytes % (A) 9 %; Neutrophils # (A) 10.2 k/uL (1.3-7.7); Neutrophils % (A) 74 %; Platelet Count 147 k/uL (150-450); RBC 3.94 m/uL (3.80-5.40); RDW 14.3 % (11.5-15.5); WBC 13.7 k/uL (3.8-10.6)
[2020-10-29] MEDS: SENNOSIDES-DOCUSATE SODIUM 1 EACH TAB PO SCH ×2 (08:03→19:45)
--- NOTE | 2020-10-29 08:34 | P.PNOBGPC ---
Subjective - Subjective Patient reports: Reports appetite normal, Reports voiding normally, Reports pain well controlled, Reports ambulating normally : doing well Objective - Vital Signs Latest vital signs: Vital Signs Temp Pulse Resp BP Pulse Ox 10/29/20 03:45 97.9 F 66 18 135/64 97 10/29/20 02:00 18 97 10/29/20 00:00 97.9 F 66 18 110/91 97 10/28/20 22:00 16 99 10/28/20 20:00 97.8 F 71 18 127/79 95 10/28/20 18:08 16 96 10/28/20 16:00 98.6 F 78 16 123/82 94 L 10/28/20 14:02 96 10/28/20 14:00 16 96 10/28/20 12:26 16 10/28/20 11:00 97.7 F 79 16 97/52 96 10/28/20 10:30 85 16 109/62 98 10/28/20 10:02 16 95 10/28/20 10:00 80 16 111/60 95 10/28/20 09:45 97.6 F 71 16 106/61 95 10/28/20 09:30 78 16 97/52 95 10/28/20 09:15 80 16 110/57 95 10/28/20 09:02 16 96 10/28/20 09:00 96.6 F L 81 16 106/55 96 Intake and Output 10/28/20 10/29/20 10/29/20 22:59 06:59 14:59 Intake Total 100 Output Total 700 1000 Balance -600 -1000 Intake: Oral 100 Output: Urine 700 1000 Uretheral ([place]) 700 Other: Voiding Method Indwelling Catheter Indwelling Catheter # Voids 1 1 - Exam Extremities: Present: normal Abdomen: Present: normal appearance, soft. Absent: distention, tenderness Incision: Present: normal, dry, intact Uterus: Present: normal, firm (The uterine fundus as tonic and appropriate tender below the umbilicus.) - Labs Labs: Abnormal Lab Results - Last 24 Hours (Table) 10/29/20 Range/Units 05:47 WBC 13.7 H (3.8-10.6) k/uL Plt Count 147 L (150-450) k/uL Neutrophils # 10.2 H (1.3-7.7) k/uL Monocytes # 1.2 H (0-1.0) k/uL Assessment and Plan (1) Previous section Current Visit: Yes Status: Acute Code(s): Z98.891 - HISTORY OF UTERINE SCAR FROM PREVIOUS SURGERY SNOMED Code(s): 990542119 (2) Term Current Visit: Yes Status: Acute Code(s): Z34.80 - ENCOUNTER FOR SUPRVSN OF NORMAL , UNSP TRIMESTER SNOMED Code(s): 93001251 (3) S/P section Current Visit: Yes Status: Acute Code(s): Z98.891 - HISTORY OF UTERINE SCAR FROM PREVIOUS SURGERY SNOMED Code(s): 505777917 Plan: Continue routine postoperative care. I have encouraged the patient ambulated always routinely today and would anticipate discharge home tomorrow. The has been found with some issues that will require him to be examined by a pediatric urologist and therefore not able to have a circumcision while here in the hospital.
--- NOTE | 2020-10-29 11:58 | P.PN ---
Progress Note - Text Progress Note Date: 10/29/20 (522) Anesthesia Postop day 1 Subjective: Status Post section with Duramorph. Patient seen and examined. Doing well without complaint. VAS 5-6 out of 10. Nausea and vomiting yesterday. Treated with meds. Now resolved.. Afebrile. Gross lower extremity strength intact. Patient has been ambulating well. Without apparent anesthetic complications. Objective: Vital signs reviewed Heart: Regular Rate Lungs: Good chest excursion Abdomen: Appears nondistended Assessment: Status post with Duramorph postop day 1 Plan: Continue current care with your medical management.
[2020-10-29] MEDS: IBUPROFEN 600 MG TAB PO PRN ×2 (13:47→23:15)
[2020-10-29] MEDS: HYDROcodone/APAP 5-325MG 1 EACH TAB PO PRN (18:17)
[2020-10-30] MEDS: HYDROcodone/APAP 5-325MG 1 EACH TAB PO PRN (03:19)
--- NOTE | 2020-10-30 08:23 | P.DS ---
Providers Date of admission: 10/28/20 05:53 Expected date of discharge: 10/30/20 Attending physician: Gilmar Golden Primary care physician: Stated None - Discharge Diagnosis(es) (1) Previous section Current Visit: Yes Status: Acute (2) Term Current Visit: Yes Status: Acute (3) S/P section Current Visit: Yes Status: Acute Hospital Course: Is a 25-year-old 2 para 1001 admitted at 39-0/7 weeks by good dating parameters perches admitted for repeat low transverse section having requested a repeat after previous section. Her was uncomplicated and group B strep status was negative. She was taken the operating room where she was delivered in uncomplicated fashion of a viable 7 lbs. 14 oz. baby boy with Apgars of 8 at 1 minute and 9 at 5 minutes. Her postoperative course was unremarkable with vital signs remaining stable and her temperature was afebrile throughout. She was deemed stable for discharge on post operative day #2 was discharged home to follow-up in the office in 2 weeks for an incision check and 6 weeks routinely. Discharge instructions included calling for any significantly increased bleeding or foul-smelling lochia, significantly increased fever abdominal pain, perineal complaints, breast complaints, incisional complaints, or anything else that concerned her. She is additionally instructed to have nothing in the vagina for at least 6 weeks time to include intercourse and to abstain from any heavy lifting over the same period of time. She was lastly instructed to do no driving until off of all pain medications or 2 weeks' time, whichever came first. She understood all of her instructions and agrees to follow up as noted above. Discharge medications included continue vitamins as she is attempting to breast-feed. She was otherwise to use [id number] analgesic pain medications as needed. She was provided a prescription for Tylenol No. 3, 1-2 by mouth every 6 hours when necessary pain, #20 dispensed with no refills. Maternal blood type is A+ and rubella status is immune. Discharge hemoglobin and hematocrit were 12.4 and 36.2 respectively. Procedures: #1. Repeat low transverse section Patient Condition at Discharge: Stable Plan - Discharge Summary Discharge Rx Participant: No New Discharge Prescriptions: No Action Pnv No.95/Ferrous Fum/Folic AC [ Multivitamin Tablet] 1 each PO DAILY Omeprazole 20 mg PO DAILY Discharge Medication List Pnv No.95/Ferrous Fum/Folic AC [ Multivitamin Tablet] 1 each PO DAILY 04/17/18 [History] Omeprazole 20 mg PO DAILY 10/25/20 [History] Follow up Appointment(s)/Referral(s): Gilmar Golden MD [STAFF PHYSICIAN] - 2 Weeks Discharge Disposition: HOME SELF-CARE
[2020-10-30] MEDS: IBUPROFEN 600 MG TAB PO PRN (08:35)
[2020-10-30] MEDS: SENNOSIDES-DOCUSATE SODIUM 1 EACH TAB PO SCH (08:36)
[2020-10-30 10:15] VITALS: BP 155/80; PULSE 89; RESP 18; TEMP 97.7
== END 2020-10-30 10:38 | disposition home or self-care (01) | DRG 787 ==
LOC: 4FBP 05:53
PROVIDERS: ADMIT Obstetrics & Gynecology; ATTEND Obstetrics & Gynecology
PROC: 10D00Z1 Extraction of Products of Conception, Low, Open Approach (ICD-10-PCS; principal; 2020-10-28 08:00)
DX: O34.211 Maternal care for low transverse scar from previous cesarean delivery (principal); O10.02 Pre-existing essential hypertension complicating childbirth; K21.9 Gastro-esophageal reflux disease without esophagitis; Z37.0 Single live birth; Z3A.39 39 weeks gestation of pregnancy; Z87.891 Personal history of nicotine dependence
CPT/HCPCS: 85025; 86850; 86900; 86901

== ENCOUNTER → 2021-11-14 | Outpatient (CLI) | payer OTHER ==
--- NOTE | 2021-11-14 11:20 | USB ---
Reason for exam: clinical finding. History: Family history of breast cancer in maternal grandmother at age 50. Physical Findings: Nurse Summary: scattered skin lesions inferior bilaterally (nurse db). US Breast LT Left complete breast ultrasound includes all four quadrants, the retroareolar region and axilla. Finding demonstrates a 0.6 x 0.8 x 0.1cm oval, hypoechoic, dermal layer lesion at 7 o'clock, a 0.9 x 0.7 x 0.2cm oval, hypoechoic, dermal layer lesion at 8 o'clock and a 3.8 x 2.8 x 1.3cm lymph node at the axilla. These results were verbally communicated with the patient and result sheet given to the patient on 11/14/21. ASSESSMENT: Benign, BI-RAD 2 RECOMMENDATION: Routine screening mammogram of both breasts at age 38.
--- NOTE | 2021-11-14 11:21 | MM ---
Reason for exam: clinical finding. Baseline mammogram. History: Family history of breast cancer in maternal grandmother at age 50. MG Diagnostic Mammo w CAD ERMIAS Bilateral CC and MLO view(s) were taken. XCCL view(s) were taken of the left breast. There are scattered fibroglandular densities. There is no discrete abnormality including area of concern. These results were verbally communicated with the patient and result sheet given to the patient on 11/14/21. ASSESSMENT: Negative, BI-RAD 1 RECOMMENDATION: Routine screening mammogram of both breasts at age 38. Manage patient on a clinical basis.
== END | disposition home or self-care (01) ==
LOC: RADMAMWWP 07:42
PROVIDERS: ATTEND Family Medicine
DX: N63.0 Unspecified lump in unspecified breast (principal); Z80.3 Family history of malignant neoplasm of breast
CPT/HCPCS: 77066

== ENCOUNTER 2022-07-30 09:48 | Day surgery (SDC) | payer OTHER ==
[2022-07-28 12:10] VITALS: BMI 39.9
[~2022-07-30 09:48] MED LIST: LACTATED RINGERS 1,000 ML IV SCH
[2022-07-30 10:12] VITALS: TEMP 97.3
[2022-07-30] MEDS ORDERED: PROPOFOL 10 MG/ML 20 ML VIAL IV ONE (11:04)
[2022-07-30] MEDS ORDERED: LIDOCAINE 2% INJ 20 MG/ML (2 ML VIAL) ONE (11:04)
--- NOTE | 2022-07-30 11:08 | P.GSHP ---
History of Present Illness H&P Date: 07/30/22 Chief Complaint: GI bleed This a 27-year-old female who's had complaints of GI bleed. Patient describes intermittent bright red blood per rectum and history of melanotic stool. She has a known history of hemorrhoids. Past Medical History Past Medical History: GERD/Reflux, Hypertension, Supraventricular Tachycardia (SVT) Additional Past Medical History / Comment(s): Blood in stool. Hx hypertension and heart murmur as a child. Gallstones. 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 Past Anesthesia/Blood Transfusion Reactions: Motion Sickness, Postoperative Nausea & Vomiting (PONV) Past Psychological History: Anxiety Smoking Status: Current some day smoker Past Alcohol Use History: Occasional Additional Past Alcohol Use History / Comment(s): Has been a smoker for 10 yrs, on and off, only smokes socially. No alcohol in 2 months. Past Drug Use History: None Reported - Past Family History Father Family Medical History: No Reported History Medications and Allergies Home Medications Medication Instructions Recorded Confirmed Type Omeprazole 20 mg PO DAILY 10/25/20 07/30/22 History Allergies Allergy/AdvReac Type Severity Reaction Status Date / Time No Known Allergies Allergy Verified 07/30/22 09:56 Surgical - Exam Vital Signs Temp Pulse Resp BP Pulse Ox 97.3 F L 90 18 126/84 99 07/30/22 10:06 07/30/22 10:06 07/30/22 10:06 07/30/22 10:06 07/30/22 10:06 - General well developed, well nourished, no distress - Eyes PERRL - ENT normal pinna - Neck no masses - Respiratory normal expansion - Cardiovascular Rhythm: regular - Abdomen Abdomen: soft Assessment and Plan Assessment: GI bleed. We'll perform EGD and colonoscopy.
--- NOTE | 2022-07-30 11:25 | P.OP ---
Date of Procedure: 07/30/22 Preoperative Diagnosis: GI bleed Postoperative Diagnosis: Duodenitis Internal and external hemorrhoids Procedure(s) Performed: EGD Colonoscopy Anesthesia: MAC Surgeon: Nick Baker Pathology: other (Trimmed) Condition: stable Disposition: PACU Description of Procedure: The patient's placed on the endoscopy table in the lateral position. She received IV sedation. The gastroscope placed oropharynx passed in the esophagus and stomach. Scope was then placed through the pylorus. The first and second portion of the duodenum was examined. This appeared inflamed. A biopsies performed. Scope was then brought back the antrum this was minimal inflamed. Biopsies performed. Scope was then retroflexed and the remainder the stomach appeared normal. The GE junction was at 40 cm per the distal esophagus appeared normal. The proximal esophagus appeared normal. Scope withdrawn for patient. Next digital rectal exam was performed. There were internal and external hemorrhoids noted. The flexible colonoscope was then placed patient anus and passed throughout the entire colon. The ileocecal valve was visualized. Cecum, ascending and transverse colon appeared normal. The descending and sigmoid colon appeared normal. Scope was then brought back the rectum and this appeared normal. Scope withdrawn for patient. There is no evidence of any GI bleed on the upper lower endoscopy. Presumed patient may have had some bleeding from hemorrhoids.
[2022-07-30 11:28] VITALS: RESP 16
[2022-07-30 11:51] VITALS: BP 129/83; PULSE 65
== END 2022-07-30 11:58 | disposition home or self-care (01) ==
LOC: ORWHC2ENDO 09:48
PROVIDERS: ATTEND Surgery
DX: K29.80 Duodenitis without bleeding (principal); K29.50 Unspecified chronic gastritis without bleeding; K64.4 Residual hemorrhoidal skin tags; K64.8 Other hemorrhoids; I10 Essential (primary) hypertension; K21.9 Gastro-esophageal reflux disease without esophagitis; I47.1 Supraventricular tachycardia; T75.3XXA Motion sickness, initial encounter; F17.200 Nicotine dependence, unspecified, uncomplicated; Z86.59 Personal history of other mental and behavioral disorders
CPT/HCPCS: 81025; 88305; 45378; 43239; J2704; J2001

== ENCOUNTER 2022-10-26 16:54 | Emergency (ER) | payer OTHER ==
[2022-10-26 17:02] VITALS: RESP 16; TEMP 98
--- NOTE | 2022-10-26 17:53 | ED ---
Anxiety HPI - General Source: patient, RN notes reviewed Mode of arrival: wheelchair <Vanesa Keen - Last Filed: 10/26/22 17:53> <Lino Russo - Last Filed: 10/26/22 19:48> - General Chief Complaint: Anxiety Stated Complaint: Shaking,Anxiety Time Seen by Provider: 10/26/22 17:49 - History of Present Illness Initial Comments: Patient is a 27-year-old female who presents for evaluation of anxiety. Patient was at a today which caused her to be very anxious. She reports multiple panic attacks and shaking due to anxiety. She then smoked a family member's CBD pen which made her body tingle. She became concerned when she "couldn't control body movements". No seizure history. Family is concerned that patient is taking longer to answer questions throughout the day. No chest pain or shortness of breath. Denies alcohol use. (Vanesa Keen) - Related Data Home Medications: Home Medications Medication Instructions Recorded Confirmed Omeprazole 20 mg PO DAILY 10/25/20 07/30/22 Allergies/Adverse Reactions: Allergies Allergy/AdvReac Type Severity Reaction Status Date / Time No Known Allergies Allergy Verified 07/30/22 09:56 Review of Systems ROS Other: All systems not noted in ROS Statement are negative. <Vanesa Keen - Last Filed: 10/26/22 17:53> ROS Other: All systems not noted in ROS Statement are negative. <Lino Russo - Last Filed: 10/26/22 19:48> ROS Statement: Those systems with pertinent positive or pertinent negative responses have been documented in the HPI. Past Medical History Past Medical History: GERD/Reflux, Hypertension, Supraventricular Tachycardia (SVT) Additional Past Medical History / Comment(s): Blood in stool. Hx hypertension and heart murmur as a child. Gallstones. 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 Past Anesthesia/Blood Transfusion Reactions: Motion Sickness, Postoperative Nausea & Vomiting (PONV) Past Psychological History: Anxiety Smoking Status: Current some day smoker Past Alcohol Use History: Occasional Past Drug Use History: None Reported - Past Family History Father Family Medical History: No Reported History <Vanesa Keen - Last Filed: 10/26/22 17:53> General Exam Limitations: no limitations <Vanesa Keen - Last Filed: 10/26/22 17:53> Course Vital Signs 10/26/22 16:59 Temperature 98 F Pulse Rate 97 Respiratory 16 Rate Blood Pressure 141/85 O2 Sat by Pulse 98 Oximetry Medical Decision Making <Lino Russo - Last Filed: 10/26/22 19:48> - Medical Decision Making Was pt. sent in by a medical professional or institution (, LIBBY, BUNKER WORKER, urgent care, hospital, or snf...) When possible be specific @ -No Did you speak to anyone other than the patient for history (EMS, parent, family, police, friend...)? What history was obtained from this source @ -Friend was in the room and he gave his observations of the patient prior to arrival Did you review nursing and triage notes (agree or disagree)? Why? @ -I reviewed and agree with nursing and triage notes Were old charts reviewed (outside hosp., previous admission, EMS record, old EKG, old radiological studies, urgent care reports/EKG's, snf records)? Report findings @ -No old charts were reviewed Differential Diagnosis (chest pain, altered mental status, abdominal pain women, abdominal pain men, vaginal bleeding, weakness, fever, dyspnea, syncope, headache, dizziness, GI bleed, back pain, seizure, CVA, palpatations, mental health)? @ -, Anxiety, grief, marijuana, drug inhalation, infection, this is not all inclusive list EKG interpreted by me (3pts min.). @ -As above X-rays interpreted by me (1pt min.). @ -None done CT interpreted by me (1pt min.). @ -None done U/S interpreted by me (1pt. min.). @ -None done What testing was considered but not performed or refused? (CT, X-rays, U/S, labs)? Why? @ -None What meds were considered but not given or refused? Why? @ -None Did you discuss the management of the patient with other professionals (professionals i.e. , LIBBY, BUNKER WORKER, lab, RT, psych nurse, social media editor, sider mechanic, teacher, youth liaison officer, transplant case manager)? Give summary @ -No Was smoking cessation discussed for >3mins.? @ -No Was critical care preformed (if so, how long)? @ -No Were there social determinants of health that impacted care today? How? (Homelessness, low income, unemployed, alcoholism, drug addiction, transportation, low edu. Level, literacy, decrease access to med. care, halfway, rehab)? @ -No Was there de-escalation of care discussed even if they declined (Discuss DNR or withdrawal of care, Hospice)? DNR status @ -No What co-morbidities impacted this encounter? (DM, HTN, Smoking, COPD, CAD, Cancer, CVA, ARF, Chemo, Hep., AIDS, mental health diagnosis, sleep apnea, morbid obesity)? @ -None Was patient admitted / discharged? Hospital course, mention meds given and route, prescriptions, significant lab abnormalities, going to OR and other pertinent info. @ -Patient was given 2 mg of Ativan by mouth and after a while. I went back in and reevaluated her. She was doing generally better. She was sleeping. She is able to get up and talk coherently and stated that she felt more mentally clear. Patient was a little surprised to find out that she had taped marijuana but she states that she does not normally do marijuana, so that may have been additive to her anxiety and grief Undiagnosed new problem with uncertain prognosis? @ -No Drug Therapy requiring intensive monitoring for toxicity (Heparin, Nitro, Insulin, Cardizem)? @ -No Were any procedures done? @ -No Diagnosis/symptom? @ -Anxiety Acute, or Chronic, or Acute on Chronic? @ -Acute Uncomplicated (without systemic symptoms) or Complicated (systemic symptoms)? @ -Uncomplicated Side effects of treatment? @ -No Exacerbation, Progression, or Severe Exacerbation? @ -No Poses a threat to life or bodily function? How? (Chest pain, [place], [place], pneumonia, PE, COPD, DKA, ARF, appy, cholecystitis, CVA, Diverticulitis, Homicidal, Suicidal, threat to staff... and all critical care pts) @ -No (Lino Russo) - Lab Data Lab Results 10/26/22 Range/Units 18:41 Urine Opiates Screen Not Detected (NotDetected) Ur Oxycodone Screen Not Detected (NotDetected) Urine Methadone Screen Not Detected (NotDetected) Ur Propoxyphene Screen Not Detected (NotDetected) Ur Barbiturates Screen Not Detected (NotDetected) U Tricyclic Antidepress Not Detected (NotDetected) Ur Phencyclidine Scrn Not Detected (NotDetected) Ur Amphetamines Screen Not Detected (NotDetected) U Methamphetamines Scrn Not Detected (NotDetected) U Benzodiazepines Scrn Not Detected (NotDetected) Urine Cocaine Screen Not Detected (NotDetected) U Marijuana (THC) Screen Detected H (NotDetected) Disposition <Vanesa Keen - Last Filed: 10/26/22 17:53> Is patient prescribed a controlled substance at d/c from ED?: No Time of Disposition: 19:48 <Lino Russo - Last Filed: 10/26/22 19:48> Clinical Impression: Acute anxiety, Marijuana use Disposition: HOME SELF-CARE Instructions (If sedation given, give patient instructions): Generalized Anxiety Disorder (ED) Referrals: Yazan Medrano Jr, [Primary Care Provider] - 1-2 days
[2022-10-26] MEDS ORDERED: LORazepam 1 MG TAB PO STA (18:24)
[2022-10-26 19:01] LABS: Amphetamine Screen,Urine Not Detected (NotDetected); Barbiturate Screen,Urine Not Detected (NotDetected); Benzodiazepines Screen,Urine Not Detected (NotDetected); Cocaine Screen,Urine Not Detected (NotDetected); Methadone Screen, Urine Not Detected (NotDetected); Opiate Screen,Urine Not Detected (NotDetected); Oxycodone Screen, Urine Not Detected (NotDetected); Phencyclidine Screen,Urine Not Detected (NotDetected); Tricyclic Antidepressant,Urine Not Detected (NotDetected); Urn Cannabinoid Scrn Detected (NotDetected)
[2022-10-26 19:56] VITALS: BP 147/86; PULSE 87
== END 2022-10-26 19:55 | disposition home or self-care (01) ==
LOC: EC 16:54
DX: F41.9 Anxiety disorder, unspecified (principal); I10 Essential (primary) hypertension; K21.9 Gastro-esophageal reflux disease without esophagitis; F17.200 Nicotine dependence, unspecified, uncomplicated; F12.90 Cannabis use, unspecified, uncomplicated; Z79.899 Other long term (current) drug therapy
CPT/HCPCS: 80306; 99283

== ENCOUNTER 2023-01-06 08:13 | Emergency (ER) | payer OTHER ==
[2023-01-06 08:26] VITALS: TEMP 98.7
[2023-01-06] MEDS ORDERED: SODIUM CHLORIDE 0.9% 500 ML 500 ML IV STA (08:37)
--- NOTE | 2023-01-06 09:04 | ED ---
Female Urogenital HPI - General Chief complaint: Vaginal Bleeding Stated complaint: 8wks preg spotting Time Seen by Provider: 01/06/23 08:36 Source: patient Mode of arrival: ambulatory Limitations: no limitations - History of Present Illness Initial comments: This is a nontoxic-appearing 27-year-old female that presents with complaints of vaginal spotting in . Last menstrual period 11/10/2022. Patient states she is approximately 8 weeks . She is a . Denies any pain or cramping. Patient states she is also feeling upper and epigastric abdominal pain. Does have a history of gallstones. No other medical history. Previous pregnancies by . Youngest child is 2 years. Complaint: vaginal bleeding -: hour(s) (1) Severity scale (1-10): 0 Last Menstrual Period: 11/10/22 Patient : Yes Number of weeks : 8 Associated Symptoms: abdominal pain (epigastric) - Related Data Home Medications Medication Instructions Recorded Confirmed Omeprazole 20 mg PO DAILY 10/25/20 07/30/22 Allergies Allergy/AdvReac Type Severity Reaction Status Date / Time No Known Allergies Allergy Verified 01/06/23 08:26 Review of Systems ROS Statement: Those systems with pertinent positive or pertinent negative responses have been documented in the HPI. ROS Other: All systems not noted in ROS Statement are negative. Past Medical History Past Medical History: GERD/Reflux, Hypertension, Supraventricular Tachycardia (SVT) Additional Past Medical History / Comment(s): Blood in stool. Hx hypertension and heart murmur as a child. Gallstones. 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 Past Anesthesia/Blood Transfusion Reactions: Motion Sickness, Postoperative Nausea & Vomiting (PONV) Past Psychological History: Anxiety Smoking Status: Former smoker Past Alcohol Use History: Occasional Past Drug Use History: None Reported - Past Family History Father Family Medical History: No Reported History General Exam Limitations: no limitations General appearance: alert, in no apparent distress Head exam: Present: atraumatic Eye exam: Present: normal appearance. Absent: scleral icterus, conjunctival injection, periorbital swelling, periorbital tenderness ENT exam: Present: mucous membranes moist Neck exam: Present: full ROM. Absent: meningismus Respiratory exam: Present: normal lung sounds bilaterally. Absent: respiratory distress, accessory muscle use Cardiovascular Exam: Present: regular rate GI/Abdominal exam: Present: soft, other (No right upper or right lower quadrant). Absent: distended, tenderness, guarding, rebound, rigid Extremities exam: Present: full ROM, normal capillary refill. Absent: pedal edema Back exam: Present: normal inspection. Absent: tenderness, CVA tenderness (R), CVA tenderness (L), rash noted Neurological exam: Present: alert, oriented X3 Psychiatric exam: Present: normal affect, normal mood Skin exam: Present: warm, dry, normal color. Absent: cyanosis, diaphoretic, petechiae, pallor Course Vital Signs 01/06/23 01/06/23 08:21 11:36 Temperature 98.7 F Pulse Rate 90 80 Respiratory 20 18 Rate Blood Pressure 129/86 134/85 O2 Sat by Pulse 98 100 Oximetry Medical Decision Making - Medical Decision Making Ultrasound transvaginal shows findings consistent with demise with crown- rump length 1.1 cm, no heart tones identified. Ultrasound of gallbladder shows no acute process. Gallbladder within normal limits. CBC and electrolytes are unremarkable. Patient's blood type per medical record A+ Patient states vaginal spotting. Abdomen soft and nontender. Denies any pain or cramping at this time. She was notified of the ultrasound results. She was directed to follow up with Dr. Simpson her PRISON GUARD. Instructed to take Tylenol Motrin and Cipro any pain or discomfort. Increase her fluid intake. She was given a Tylenol 3 starter pack for any pain. Strict return parameters were discussed. Vital signs are stable. She is agreeable to discharge case discussed with Dr. Rincon. Was pt. sent in by a medical professional or institution (, PA, MANAGER HEAVY EQUIPMENT, urgent care, hospital, or long term...) When possible be specific @ -No Did you speak to anyone other than the patient for history (EMS, parent, family, police, friend...)? What history was obtained from this source @ -No Did you review nursing and triage notes (agree or disagree)? Why? @ -I reviewed and agree with nursing and triage notes Were old charts reviewed (outside hosp., previous admission, EMS record, old EKG, old radiological studies, urgent care reports/EKG's, long term records)? Report findings @ -Previous blood type results A+ Differential Diagnosis (chest pain, altered mental status, abdominal pain women, abdominal pain men, vaginal bleeding, weakness, fever, dyspnea, syncope, headache, dizziness, GI bleed, back pain, seizure, CVA, palpatations, mental health, musculoskeletal)? @ -Ectopic , threatened miscarriage, demise, cholecystitis EKG interpreted by me (3pts min.). @ -n/a X-rays interpreted by me (1pt min.). @ -None done CT interpreted by me (1pt min.). @ -None done U/S interpreted by me (1pt. min.). @ -no What testing was considered but not performed or refused? (CT, X-rays, U/S, labs)? Why? @ -None What meds were considered but not given or refused? Why? @ -None Did you discuss the management of the patient with other professionals (professionals i.e. , PA, MANAGER HEAVY EQUIPMENT, lab, RT, psych nurse, social work job titles, folder gluer operator, teacher, deportation officer, social work case manager)? Give summary @ -No Was smoking cessation discussed for >3mins.? @ -No Was critical care preformed (if so, how long)? @ -No Were there social determinants of health that impacted care today? How? (Homelessness, low income, unemployed, alcoholism, drug addiction, transportation, low edu. Level, literacy, decrease access to med. care, group home, rehab)? @ -No Was there de-escalation of care discussed even if they declined (Discuss DNR or withdrawal of care, Hospice)? DNR status @ -No What co-morbidities impacted this encounter? (DM, HTN, Smoking, COPD, CAD, Cancer, CVA, ARF, Chemo, Hep., AIDS, mental health diagnosis, sleep apnea, morbid obesity)? @ -None Was patient admitted / discharged? Hospital course, mention meds given and route, prescriptions, significant lab abnormalities, going to OR and other pertinent info. @ -Discharged Undiagnosed new problem with uncertain prognosis? @ -No Drug Therapy requiring intensive monitoring for toxicity (Heparin, Nitro, Insulin, Cardizem)? @ -No Were any procedures done? @ -No Diagnosis/symptom? @ - demise Acute, or Chronic, or Acute on Chronic? @ -Acute Uncomplicated (without systemic symptoms) or Complicated (systemic symptoms)? @ -Uncomplicated Side effects of treatment? @ -No Exacerbation, Progression, or Severe Exacerbation? @ -No Poses a threat to life or bodily function? How? (Chest pain, [place], [place], pneumonia, PE, COPD, DKA, ARF, appy, cholecystitis, CVA, Diverticulitis, Homicidal, Suicidal, threat to staff... and all critical care pts) @ -No - Lab Data Result diagrams: 01/06/23 09:05 01/06/23 09:05 Lab Results 01/06/23 01/06/23 01/06/23 Range/Units 09:05 09:05 09:05 WBC 7.1 (3.8-10.6) k/uL RBC 4.77 (3.80-5.40) m/uL Hgb 12.5 (11.4-16.0) gm/dL Hct 38.5 (34.0-46.0) % MCV 80.8 (80.0-100.0) fL MCH 26.2 (25.0-35.0) pg MCHC 32.5 (31.0-37.0) g/dL RDW 15.3 (11.5-15.5) % Plt Count 256 (150-450) k/uL MPV 8.4 Neutrophils % 67 % Lymphocytes % 23 % Monocytes % 7 % Eosinophils % 1 % Basophils % 1 % Neutrophils # 4.7 (1.3-7.7) k/uL Lymphocytes # 1.6 (1.0-4.8) k/uL Monocytes # 0.5 (0-1.0) k/uL Eosinophils # 0.1 (0-0.7) k/uL Basophils # 0.0 (0-0.2) k/uL PT 10.9 (9.0-12.0) sec INR 1.0 (<1.2) Sodium (137-145) mmol/L Potassium (3.5-5.1) mmol/L Chloride (98-107) mmol/L Carbon Dioxide (22-30) mmol/L Anion Gap mmol/L BUN (7-17) mg/dL Creatinine (0.52-1.04) mg/dL Est GFR (CKD-EPI)AfAm (>60 ml/min/1.73 sqM) Est GFR (CKD-EPI)NonAf (>60 ml/min/1.73 sqM) Glucose (74-99) mg/dL Calcium (8.4-10.2) mg/dL Total Bilirubin (0.2-1.3) mg/dL AST (14-36) U/L ALT (4-34) U/L Alkaline Phosphatase (38-126) U/L Total Protein (6.3-8.2) g/dL Albumin (3.5-5.0) g/dL HCG, Quant mIU/mL Urine Color Colorless Urine Appearance Clear (Clear) Urine pH 6.0 (5.0-8.0) Ur Specific [place] 1.000 L (1.001-1.035) Urine Protein Negative (Negative) Urine Glucose (UA) Negative (Negative) Urine Ketones Negative (Negative) Urine Blood Large H (Negative) Urine Nitrite Negative (Negative) Urine Bilirubin Negative (Negative) Urine Urobilinogen <2.0 (<2.0) mg/dL Ur Leukocyte Esterase Negative (Negative) Urine RBC <1 (0-5) /hpf Urine WBC 1 (0-5) /hpf Ur Squamous Epith Cells 1 (0-4) /hpf Urine Bacteria Rare H (None) /hpf Urine HCG, Qual (Not Detectd) 01/06/23 01/06/23 Range/Units 09:05 09:05 WBC (3.8-10.6) k/uL RBC (3.80-5.40) m/uL Hgb (11.4-16.0) gm/dL Hct (34.0-46.0) % MCV (80.0-100.0) fL MCH (25.0-35.0) pg MCHC (31.0-37.0) g/dL RDW (11.5-15.5) % Plt Count (150-450) k/uL MPV Neutrophils % % Lymphocytes % % Monocytes % % Eosinophils % % Basophils % % Neutrophils # (1.3-7.7) k/uL Lymphocytes # (1.0-4.8) k/uL Monocytes # (0-1.0) k/uL Eosinophils # (0-0.7) k/uL Basophils # (0-0.2) k/uL PT (9.0-12.0) sec INR (<1.2) Sodium 138 (137-145) mmol/L Potassium 4.0 (3.5-5.1) mmol/L Chloride 106 (98-107) mmol/L Carbon Dioxide 22 (22-30) mmol/L Anion Gap 10 mmol/L BUN 6 L (7-17) mg/dL Creatinine 0.66 (0.52-1.04) mg/dL Est GFR (CKD-EPI)AfAm >90 (>60 ml/min/1.73 sqM) Est GFR (CKD-EPI)NonAf >90 (>60 ml/min/1.73 sqM) Glucose 115 H (74-99) mg/dL Calcium 9.0 (8.4-10.2) mg/dL Total Bilirubin 0.3 (0.2-1.3) mg/dL AST 29 (14-36) U/L ALT 34 (4-34) U/L Alkaline Phosphatase 79 (38-126) U/L Total Protein 7.5 (6.3-8.2) g/dL Albumin 4.2 (3.5-5.0) g/dL HCG, Quant 79384.5 mIU/mL Urine Color Urine Appearance (Clear) Urine pH (5.0-8.0) Ur Specific [place] (1.001-1.035) Urine Protein (Negative) Urine Glucose (UA) (Negative) Urine Ketones (Negative) Urine Blood (Negative) Urine Nitrite (Negative) Urine Bilirubin (Negative) Urine Urobilinogen (<2.0) mg/dL Ur Leukocyte Esterase (Negative) Urine RBC (0-5) /hpf Urine WBC (0-5) /hpf Ur Squamous Epith Cells (0-4) /hpf Urine Bacteria (None) /hpf Urine HCG, Qual Detected (Not Detectd) Disposition Clinical Impression: demise before 20 weeks with retention of fetus Disposition: HOME SELF-CARE Condition: Good Instructions (If sedation given, give patient instructions): Miscarriage (ED) Additional Instructions: Please follow-up with your PRISON GUARD this week. You will have increased bleeding and some cramping. Take the Tylenol with codeine as needed for pain and discomfort. Is patient prescribed a controlled substance at d/c from ED?: No Referrals: Yazan Medrano Jr, DO [Primary Care Provider] - 1-2 days Gilmar Golden MD [STAFF PHYSICIAN] - 1-2 days Time of Disposition: 11:19
[2023-01-06 09:22] LABS: Basophils % (A) 1 %; Eosinophils # (A) 0.1 k/uL (0-0.7); Eosinophils % (A) 1 %; HCT 38.5 % (34.0-46.0); HGB 12.5 gm/dL (11.4-16.0); Lymphocytes # (A) 1.6 k/uL (1.0-4.8); Lymphocytes % (A) 23 %; MCH 26.2 pg (25.0-35.0); MCHC 32.5 g/dL (31.0-37.0); MCV 80.8 fL (80.0-100.0); Mean Platelet Volume 8.4; Monocytes # (A) 0.5 k/uL (0-1.0); Monocytes % (A) 7 %; Neutrophils # (A) 4.7 k/uL (1.3-7.7); Neutrophils % (A) 67 %; Platelet Count 256 k/uL (150-450); RBC 4.77 m/uL (3.80-5.40); RDW 15.3 % (11.5-15.5); WBC 7.1 k/uL (3.8-10.6)
[2023-01-06 09:28] LABS: Prothrombin Time 10.9 sec (9.0-12.0)
[2023-01-06 09:31] LABS: Appearance,Urine Clear (Clear); Bacteria,Urine Rare /hpf; Bilirubin,Urine Negative (Negative); Blood,Urine Large (Negative); Color,Urine Colorless; Glucose,Urine (UA) Negative (Negative); Ketones,Urine Negative (Negative); Leukocyte Esterase,Urine Negative (Negative); Nitrite,Urine Negative (Negative); Protein,Urine Negative (Negative); RBC,Urine <1 /hpf (0-5); Squamous Epithelial Cell,Urine 1 /hpf (0-4); Urobilinogen,Urine <2.0 mg/dL (<2.0); WBC,Urine 1 /hpf (0-5)
[2023-01-06 09:37] LABS: ALT 34 U/L (4-34); AST 29 U/L (14-36); African American GFR (CKD) >90 (>60 ml/min/1.73 sqM); Albumin 4.2 g/dL (3.5-5.0); Alkaline Phosphatase 79 U/L (38-126); Anion Gap 10 mmol/L; Blood Urea Nitrogen 6 mg/dL (7-17); Carbon Dioxide 22 mmol/L (22-30); Chloride 106 mmol/L (98-107); Glucose 115 mg/dL (74-99); Non-African American GFR(CKD) >90 (>60 ml/min/1.73 sqM); Sodium 138 mmol/L (137-145); Total Bilirubin 0.3 mg/dL (0.2-1.3); Total Protein 7.5 g/dL (6.3-8.2)
--- NOTE | 2023-01-06 10:09 | US ---
EXAMINATION TYPE: US gallbladder DATE OF EXAM: 01/06/2023 COMPARISON: US 2019 CLINICAL HISTORY: pain. Ruq pain TECHNIQUE: Multiple sonographic images of the right upper quadrant are obtained. FINDINGS: EXAM MEASUREMENTS: Liver Length: 14.7 cm Gallbladder Wall: 0.2 cm CBD: 0.3 cm Right Kidney: 11.4 x 4.4 x 5.2 cm Pancreas: obscured by overlying midline bowel gas Liver: scanned intercostally, visualized portions wnl Gallbladder: wnl Evidence for sonographic Covarrubias's sign: no CBD: visualized portions wnl Right Kidney: wnl Pancreas is obscured by overlying bowel gas. Limited visualization of the liver. The visualized porti ons are within normal limits. Gallbladder is unremarkable without evidence of cholelithiasis, pericar dial fluid, wall thickening. Per global commodity manager, negative sonographic Covarrubias sign. Common bile duct with in normal limits. The right kidney is within normal limits without evidence of hydronephrosis, solid mass, or nephrolithiasis. IMPRESSION: No acute process.
--- NOTE | 2023-01-06 10:11 | US ---
EXAMINATION TYPE: Transabdominal DATE OF EXAM: 01/06/2023 9:54 AM COMPARISON: NONE CLINICAL HISTORY: 8 wks preg bleeding. Bleeding x 1 day EXAM PERFORMED: Transabdominal (TA) EXAM MEASUREMENTS: GESTATIONAL AGE / DATING Physician Established: Not yet established Dates by LMP: (8 weeks/1 days) EDC: 08/17/2023 Dates by First Scan: This is 1st scan Dates by Current Scan for: ( 7 weeks/3 days) EDC: 08/22/2023 MATERNAL ANATOMY Uterus: 15.5 x 4.7 x 9.5cm Right Ovary: 2.2 x 1.9 x 2.3cm Left Ovary: 3.1 x 1.6 x 1.8cm Post CDS / Adnexa: wnl Presence of free fluid: no Presence of corpus luteal cyst: not seen Presence of subchorionic bleed: no GESTATION / SURVEY CRL: 1.1cm (7 weeks/3 days) Yolk Sac (normal less than 6mm): 3.0mm No heart tones seen at this time IUP: Demise Date of LMP: 11/10/2022 Beta HcG (if available): Not available at time of exam IMPRESSION: Findings consistent with demise with a crown-rump length of 1.1 cm and no heart tones loretta ntified.
[2023-01-06 10:56] LABS: HCG,Quantitative Serum 82843.5 mIU/mL
[2023-01-06] MEDS ORDERED: ACET/COD 300 MG/30 MG STARTER PACK 6 TAB BTL PO STA (11:20)
[2023-01-06 11:38] VITALS: BP 134/85; PULSE 80; RESP 18
== END 2023-01-06 11:38 | disposition home or self-care (01) ==
LOC: EC 08:13
DX: O36.4XX0 Maternal care for intrauterine death, not applicable or unspecified (principal); O10.011 Pre-existing essential hypertension complicating pregnancy, first trimester; O99.611 Diseases of the digestive system complicating pregnancy, first trimester; K21.9 Gastro-esophageal reflux disease without esophagitis; Z87.891 Personal history of nicotine dependence; Z79.899 Other long term (current) drug therapy; Z3A.08 8 weeks gestation of pregnancy
CPT/HCPCS: 36415; 76705; 76801; 80053; 81001; 81025; 84702; 85025; 85610; 96360; 96361; 99284

== ENCOUNTER 2023-08-10 07:34 | Inpatient (IN) | payer OTHER ==
[2023-08-10] MEDS ORDERED: CARBOPROST TROMETHAMINE 250 MCG/ML 1 ML AMP IM PRN (08:23)
[2023-08-10] MEDS ORDERED: LACTATED RINGERS 1,000 ML IV ONE (08:23)
[2023-08-10] MEDS ORDERED: miSOPROStoL 200 MCG TAB PO PRN (08:23)
[2023-08-10] MEDS ORDERED: OXYTOCIN 10 UNIT/ML 1 ML VIAL IM PRN (08:23)
[2023-08-10] MEDS ORDERED: TRANEXAMIC 1,000 MG/100ML-NACL 1,000 MG in EMPTY BAG 1 BAG IV PRN (08:23)
[2023-08-10] MEDS ORDERED: CITRIC ACID-SODIUM CITRATE 15 ML CUP PO ONE (08:23)
[2023-08-10] MEDS ORDERED: METHYLERGONOVINE 0.2 MG/ML 1 ML AMP IM PRN (08:23)
--- NOTE | 2023-08-10 09:30 | P.HPOB ---
History of Present Illness H&P Date: 08/10/23 Chief Complaint: 39-0/7 weeks, previous section x2, undesired fertility The patient is a 28-year-old 3 para 2 scissors or 2 admitted at 39-0/7 weeks as established by last menstrual period and confirmed by 8 week ultrasound. She has a previous history of 2 sections and has requested repeat with tubal ligation intraoperatively. Risks and complications tubal ligation have been discussed. Her has otherwise been uncomplicated and group B strep status is negative. On labor and delivery, all signs reassuring with a category 1 heart rate tracing. Obstetrical history: 3 para 2001 with 2 term sections. Current statistics are listed in history present illness. EDC of 08/17/2023 was established by last menstrual period and confirmed by 8 week ultrasound. Laboratory workup demonstrates a blood type of A+ with a negative antibody screen. Rubella status is immune. The remainder of the laboratory workup was within normal limits. Early Glucola and second trimester Glucola were normal. Group B strep status is negative. Gynecologic history: Unremarkable with no history of any infections to include STDs. Review of Systems Review of systems is confined to history of present illness. Past Medical History Past Medical History: GERD/Reflux, Hypertension, Supraventricular Tachycardia (SVT) Additional Past Medical History / Comment(s): Blood in stool. Hx hypertension and heart murmur as a child. Gallstones. 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 Past Anesthesia/Blood Transfusion Reactions: Motion Sickness, Postoperative Nausea & Vomiting (PONV) Past Psychological History: Anxiety Smoking Status: Former smoker Past Alcohol Use History: Occasional Past Drug Use History: None Reported - Past Family History Father Family Medical History: No Reported History Medications and Allergies Home Medications Medication Instructions Recorded Confirmed Type Omeprazole 20 mg PO DAILY 10/25/20 08/10/23 History Aspirin 81 mg PO DAILY 08/10/23 08/10/23 History Pnv No.175/Iron Fum/Folic Acid 1 each PO DAILY 08/10/23 08/10/23 History [ Complete Tablet] Allergies Allergy/AdvReac Type Severity Reaction Status Date / Time No Known Allergies Allergy Verified 01/06/23 08:26 Exam Intake and Output 08/09/23 08/10/23 08/10/23 22:59 06:59 14:59 Other: Weight 117.934 kg In general, this is a well-developed, moderately obese white female in no acute distress. Her heart has a regular rhythm and rate without murmur. Her lungs clear to auscultation bilaterally in all price. Her abdomen is gravid, nondistended, has normal active bowel sounds, soft, nontender, and without any palpable masses aside from uterine fundus. Her extremities without any cyanosis, clubbing, or significant edema and are nontender to palpation bilaterally. Digital cervical examination is deferred. Assessment and Plan (1) Family planning Current Visit: Yes Status: Acute Code(s): Z30.09 - ENCOUNTER FOR OT GENERAL CNSL AND ADVICE ON CONTRACEPTION SNOMED Code(s): 651912522 (2) Previous section Current Visit: Yes Status: Acute Code(s): Z98.891 - HISTORY OF UTERINE SCAR FROM PREVIOUS SURGERY SNOMED Code(s): 770747551 (3) Term Current Visit: Yes Status: Acute Code(s): Z34.80 [facility] UNSP [facility]IMESTER SNOMED Code(s): 19279075 Plan: The patient is admitted for repeat low transverse section with intraoperative bilateral tubal occlusion using Filshie clips. The risks and complications have been discussed regarding all procedures and she has agreed to proceed. She has reconfirmed her desire for permanent sterilization.
[2023-08-10 10:19] LABS: Basophils % (A) 0 %; Eosinophils # (A) 0.1 k/uL (0-0.7); Eosinophils % (A) 1 %; HCT 38.4 % (34.0-46.0); HGB 13.2 gm/dL (11.4-16.0); Lymphocytes # (A) 1.9 k/uL (1.0-4.8); Lymphocytes % (A) 17 %; MCH 31.6 pg (25.0-35.0); MCHC 34.2 g/dL (31.0-37.0); MCV 92.3 fL (80.0-100.0); Mean Platelet Volume 8.8; Monocytes # (A) 0.8 k/uL (0-1.0); Monocytes % (A) 7 %; Neutrophils # (A) 8.3 k/uL (1.3-7.7); Neutrophils % (A) 73 %; Platelet Count 207 k/uL (150-450); RBC 4.17 m/uL (3.80-5.40); WBC 11.2 k/uL (3.8-10.6)
[2023-08-10] MEDS ORDERED: KETOROLAC 15 MG/ML 1 ML VIAL IVP PRN (11:11)
[2023-08-10] MEDS ORDERED: LANOLIN CREAM 5 GM TUBE TOPICAL PRN (11:11)
[2023-08-10] MEDS ORDERED: diphenhydrAMINE 50 MG CAP PO PRN (11:11)
[2023-08-10] MEDS ORDERED: diphenhydrAMINE 25 MG CAP PO PRN (11:11)
[2023-08-10] MEDS ORDERED: ONDANSETRON 4 MG/2 ML VIAL IVP PRN (11:11)
[2023-08-10] MEDS ORDERED: NALOXONE 0.4 MG/ML 1 ML VIAL IV PRN (11:11)
[2023-08-10] MEDS ORDERED: diphenhydrAMINE 50 MG/ML 1 ML VIAL IVP PRN ×2 (11:11)
[2023-08-10] MEDS ORDERED: ZOLPIDEM 5 MG TAB PO PRN (11:11)
[2023-08-10] MEDS ORDERED: METOCLOPRAMIDE 5 MG/ML 2 ML VIAL IVP PRN (11:11)
[2023-08-10] MEDS ORDERED: SIMETHICONE 80 MG CHEWABLE PO PRN (11:11)
[2023-08-10] MEDS ORDERED: OXYTOCIN 30 UNITS/500 ML NS 30 UNIT in SALINE 1 500ML.BAG IV SCH (11:15)
--- NOTE | 2023-08-10 11:19 | P.OP ---
Date of Procedure: 08/10/23 Preoperative Diagnosis: #1. 39-0/7 weeks, previous section x2, requesting repeat #2. Undesired fertility Postoperative Diagnosis: Same Procedure(s) Performed: #1. Repeat low transverse section #2. Intraoperative bilateral tubal occlusion with Filshie clips Anesthesia: spinal Surgeon: Gilmar Golden Tooth Cutter Spur #1: Karo Crowder Estimated Blood Loss (ml): 300 IV fluids (ml): 1,000 Urine output (ml): 50 Pathology: none sent Condition: stable Disposition: floor Operative Findings: The patient was taken the operating room where she was delivered by repeat section of a viable 7 lbs. 10 oz. baby girl with Apgars of 9 at 1 minute and 9 at 5 minutes in the occiput anterior position. The placenta was delivered manually, intact, and grossly normal with a grossly normal three- vessel cord. The uterus, tubes, and ovaries were normal to inspection though there was a significantly thinned lower uterine segment, close to paper thin. There was a moderate to significant amount of scarring at the level of the fascia and rectus muscles. Description of Procedure: The patient was prepped and draped in usual fashion after spinal anesthesia was administered by the anesthesiologist. A Pfannenstiel incision was made through pre-existing scar and extended into the abdominal cavity with some difficulty identifying the proper plane secondary to scarring at the level of the fascia and rectus muscles. Once that was sort of the abdomen was entered without further difficulty. The bladder peritoneum was noted to be scarred fairly high on the lower uterine segment and was elevated, incised, and reflected distally. The lower uterine segment was significantly thin, nearly translucent. A 2 cm incision was made at the most superior portion of the lower uterine segment to enter the uterus at which time clear fluid was noted. The incision was extended in both directions using the bandage scissors. The head was delivered up and through the incision where the nose and mouth were thoroughly suctioned. Remainder of the was delivered onto the field where the cord was doubly clamped, cut, and the infant passed resuscitative measures with weight and Apgars as noted above. A segment of cord was doubly clamped, cut, and set aside should cord gases become necessary. The placenta was delivered manually and intact as noted above. The uterus was exteriorized and the interior cavity of the uterus swept of any remaining placental or membranous fragments. The margins of the uterine incision were grasped with Leary clamps and the incision closed in a single running locking stitch of 0 chromic catgut from margin to margin. There was a roughly 2-3 cm extension near the right angle which was closed with a separate stitch in a running locking fashion and a single layer. Hemostasis appeared excellent. Urine was clear throughout the case. A the posterior cul-de-sac was suctioned with a guard followed by laparotomy sponge. After reaffirming the patient's desire for tubal occlusion, a Filshie clip was placed firmly across the isthmic portion of each fallopian tube approximately 2-3 cm from the cornu of the uterus bilaterally. The uterus was replaced within the abdominal cavity and the gutters swept of any remaining blood, fluid, or clot. The incision was reexamined and found to be hemostatic. The parietal peritoneum was loosely reapproximated in the layer of muscles and fascia made hemostatic with the Bovie. The fascia was then closed with 2 running stitches of 0 Vicryl proceeding from lateral margins to the midpoint. The subcutaneous tissues were irrigated, made hemostatic with the Bovie, and reapproximated with a running stitch of 30 plain catgut. The skin was reapproximated with a running subcuticular stitch of 4-0 Vicryl followed by half-inch Steri-Strips placed with Mastisol. Estimated blood loss for the case was approximate 300 mL. There were no complications. All sponge, instrument, needle counts were correct. Both mother and are resting comfortably in recovery.
[2023-08-10] MEDS: LACTATED RINGERS 1,000 ML IV SCH ×4 (19:34→23:42)
[2023-08-10] MEDS: ACETAMINOPHEN TAB 500 MG TAB PO SCH ×2 (19:34→20:33)
[2023-08-10] MEDS: IBUPROFEN 600 MG TAB PO SCH ×2 (19:35→23:41)
[2023-08-10] MEDS: SENNOSIDES-DOCUSATE SODIUM 1 EACH TAB PO SCH (21:35)
[2023-08-11] MEDS: ACETAMINOPHEN TAB 500 MG TAB PO SCH ×4 (01:52→21:34)
[2023-08-11] MEDS: LACTATED RINGERS 1,000 ML IV SCH ×3 (06:01→21:35)
[2023-08-11] MEDS: IBUPROFEN 600 MG TAB PO SCH ×3 (06:01→21:18)
[2023-08-11 07:54] LABS: Basophils % (A) 0 %; Eosinophils # (A) 0.2 k/uL (0-0.7); Eosinophils % (A) 2 %; HCT 34.4 % (34.0-46.0); HGB 12.1 gm/dL (11.4-16.0); Lymphocytes # (A) 1.3 k/uL (1.0-4.8); Lymphocytes % (A) 11 %; MCH 32.6 pg (25.0-35.0); MCHC 35.1 g/dL (31.0-37.0); MCV 92.7 fL (80.0-100.0); Mean Platelet Volume 8.3; Monocytes # (A) 0.8 k/uL (0-1.0); Monocytes % (A) 7 %; Neutrophils # (A) 9.2 k/uL (1.3-7.7); Neutrophils % (A) 79 %; Platelet Count 146 k/uL (150-450); RBC 3.71 m/uL (3.80-5.40); RDW 13.9 % (11.5-15.5); WBC 11.7 k/uL (3.8-10.6)
--- NOTE | 2023-08-11 08:42 | P.PNOBGPC ---
Subjective - Subjective Patient reports: Reports appetite normal, Reports voiding normally, Reports pain well controlled, Reports ambulating normally : doing well Objective - Vital Signs Latest vital signs: Vital Signs Temp Pulse Pulse Resp BP Pulse Ox 08/11/23 08:00 98.0 F 66 16 126/78 08/11/23 04:00 97.9 F 65 16 110/69 95 08/11/23 00:00 97.9 F 66 18 124/84 99 08/10/23 20:00 97.9 F 67 18 124/71 96 08/10/23 16:00 98.2 F 66 14 141/86 98 08/10/23 13:15 126 H 16 134/77 08/10/23 12:45 65 16 123/76 08/10/23 12:15 87 16 116/71 08/10/23 12:00 78 14 115/68 98 08/10/23 11:45 85 16 118/76 08/10/23 11:30 75 16 112/57 97 08/10/23 11:15 96.8 F L 82 16 123/56 98 08/10/23 10:02 97.1 F L 90 16 126/76 97 Intake and Output 08/10/23 08/11/23 08/11/23 22:59 06:59 14:59 Intake Total 1950 Output Total 250 1700 Balance -250 250 Intake: IV 1250 Oral 700 Output: Urine 250 1700 Straight 1100 Uretheral ([place]) 50 - Exam Extremities: Present: normal Abdomen: Present: normal appearance, soft. Absent: distention, tenderness Incision: Present: normal, dry, intact Uterus: Present: normal, firm (The uterine fundus as tonic and a purply tender below the umbilicus.) - Labs Labs: Abnormal Lab Results - Last 24 Hours (Table) 08/10/23 08/11/23 Range/Units 08:25 07:36 WBC 11.2 H 11.7 H (3.8-10.6) k/uL RBC 3.71 L (3.80-5.40) m/uL Plt Count 146 L (150-450) k/uL Neutrophils # 8.3 H 9.2 H (1.3-7.7) k/uL Assessment and Plan (1) Family planning Current Visit: Yes Status: Acute Code(s): Z30.09 - ENCOUNTER FOR OTH GENERAL CNSL AND ADVICE ON CONTRACEPTION SNOMED Code(s): 919438477 (2) Previous section Current Visit: Yes Status: Acute Code(s): Z98.891 - HISTORY OF UTERINE SCAR FROM PREVIOUS SURGERY SNOMED Code(s): 679293476 (3) Term Current Visit: Yes Status: Acute Code(s): Z34.80 - ENCOUNTER FOR SUPRVSN OF NORMAL , UNSP TRIMESTER SNOMED Code(s): 41723315 (4) S/P section Current Visit: Yes Status: Acute Code(s): Z98.891 - HISTORY OF UTERINE SCAR FROM PREVIOUS SURGERY SNOMED Code(s): 340519777 Plan: Continue routine and postoperative care. I have encouraged the patient to ambulate in the hallways routinely. I would anticipate discharge home tomorrow pending no complications.
[2023-08-11] MEDS: SENNOSIDES-DOCUSATE SODIUM 1 EACH TAB PO SCH ×2 (09:20→21:34)
--- NOTE | 2023-08-11 15:18 | P.PN ---
Progress Note - Text Progress Note Date: 08/11/23 Postoperative day 1 status post section under spinal anesthesia, and i ntrathecal morphine given for postoperative analgesia, patient doing well, there is no anesthesia related complications, Patient had no headache, vital signs stable , Assessment and plan= postop day 1 status post , doing well there is no anesthesia related complication. Patient was seen at 7:15 in the morning
[2023-08-12] MEDS: IBUPROFEN 600 MG TAB PO SCH ×3 (01:09→08:00)
[2023-08-12] MEDS: ACETAMINOPHEN TAB 500 MG TAB PO SCH ×2 (04:16→09:53)
[2023-08-12] MEDS: SENNOSIDES-DOCUSATE SODIUM 1 EACH TAB PO SCH (08:01)
[2023-08-12 08:19] VITALS: BP 116/77; PULSE 81; RESP 16; TEMP 98.1
--- NOTE | 2023-08-12 09:01 | P.DS ---
Providers Date of admission: 08/10/23 07:52 Expected date of discharge: 08/12/23 Attending physician: Gilmar Golden Primary care physician: Stated None - Discharge Diagnosis(es) (1) Family planning Current Visit: Yes Status: Acute (2) Previous section Current Visit: Yes Status: Acute (3) Term Current Visit: Yes Status: Acute (4) S/P section Current Visit: Yes Status: Acute Hospital Course: The patient is a 28-year-old 3 para 2001 admitted at 39-0/7 weeks by good dating parameters. She is admitted with a history of 2 previous sections and requesting a third with intraoperative tubal ligation. Her is otherwise uncomplicated and group B strep status is negative. On labor and delivery, all signs reassuring with a category 1 heart rate tracing. She was taken to the operating room where she underwent repeat low transverse section with intraoperative bilateral tubal occlusion using Filshie clips and uncomplicated fashion that she did have a significant amount of scarring at the rectus and fascia. She was delivered of a viable 7 lbs. 10 oz. baby girl with Apgars of 9 at 1 minute and 9 at 5 minutes. Her and postoperative course was unremarkable with vital signs remaining stable and her temperature was afebrile throughout. She was deemed stable for discharge on and postoperative day #2 and was discharged home to follow-up in the office in 2 weeks for an incision check and 6 weeks routinely. Discharge instructions included calling for any significantly increased bleeding or foul- smelling lochia, significantly increased fever abdominal pain, perineal complaints, breast complaints, incisional complaints, or anything also concerned her. She was additionally instructed to have nothing in the vagina for at least 6 weeks time to include intercourse. She was instructed to do no driving until off of all pain medications or 2 weeks' time, whichever came first. She understood her instructions and agrees to follow up as noted above. Discharge medications included continued vitamins as she is attempting to breast- feed. She is otherwise to use [id number] analgesic pain medications as needed but was provided with a prescription for [place] 5/325 mg, 1-2 by mouth every 6 hours when necessary pain, #20 dispensed with no refills. Maternal blood type was A+ and rubella status is immune. Discharge hemoglobin and hematocrit were 12.1 and 34.4 respectively. Procedures: #1. Repeat low transverse section #2. Intraoperative bilateral tubal occlusion with Filshie clips Patient Condition at Discharge: Stable Plan - Discharge Summary New Discharge Prescriptions: No Action Omeprazole 20 mg PO DAILY Pnv No.175/Iron Fum/Folic Acid [ Complete Tablet] 1 each PO DAILY Aspirin 81 mg PO DAILY Discharge Medication List Omeprazole 20 mg PO DAILY 10/25/20 [History] Aspirin 81 mg PO DAILY 08/10/23 [History] Pnv No.175/Iron Fum/Folic Acid [ Complete Tablet] 1 each PO DAILY 08/10/23 [History] Follow up Appointment(s)/Referral(s): Gilmar Golden MD [STAFF PHYSICIAN] - 2 Weeks Discharge Disposition: HOME SELF-CARE
== END 2023-08-12 10:49 | disposition home or self-care (01) | DRG 539 ==
LOC: 4FBP 07:52
PROVIDERS: ADMIT Obstetrics & Gynecology; ATTEND Obstetrics & Gynecology
PROC: 10D00Z1 Extraction of Products of Conception, Low, Open Approach (ICD-10-PCS; principal; 2023-08-10 10:00)
PROC: 0UL70CZ Occlusion of Bilateral Fallopian Tubes with Extraluminal Device, Open Approach (ICD-10-PCS; principal; 2023-08-10 10:00)
DX: O34.211 Maternal care for low transverse scar from previous cesarean delivery (principal); Z30.2 Encounter for sterilization; Z3A.39 39 weeks gestation of pregnancy; Z37.0 Single live birth; O16.4 Unspecified maternal hypertension, complicating childbirth; K21.9 Gastro-esophageal reflux disease without esophagitis; K80.20 Calculus of gallbladder without cholecystitis without obstruction; Z28.310 Unvaccinated for COVID-19; O99.62 Diseases of the digestive system complicating childbirth; Z79.82 Long term (current) use of aspirin; Z79.899 Other long term (current) drug therapy; Z87.891 Personal history of nicotine dependence
CPT/HCPCS: 85025; 86850; 86900; 86901